=== PATIENT | female | born 1940 | race Two or more races ===

== ENCOUNTER 2017-01-05 13:15 | Inpatient (IN) | payer MEDICARE, OTHER ==
[2017-01-05 14:29] VITALS: BMI 42.0
[2017-01-05] MEDS ORDERED: oxyCODONE 5 mg Immediate Release Tab PO PRN (17:17)
[2017-01-05] MEDS ORDERED: Alum-Mag Hydrox-Simethicone Susp (30 mL) PO PRN (17:17)
[2017-01-05] MEDS ORDERED: Albuterol HFA 90 mcg/actuation (8 g) IH PRN (17:17)
--- NOTE | 2017-01-05 17:33 | CP.PCM.HP ---
History of Present Illness - History of Present Illness History of Present Illness: 76 y/o female with PMH HTN, Hypothyroidism, obesity, sleep apnea, Osteoarthritis , asthma, gout, fibromyalgia, glaucoma underwent right total knee replacement in the [facility] for special surgery. Patient now transferred to acute rehab for post op physical therapy and recovery. Patient feeling well, denies any CP, SOB, palpitations, PND, orthpopnea, She has sleep apnea and uses her CPAP machine at night.Complains of constipation and last BM was 3 days ago. Denies any abdominal pain,fever chills, nausea, vomiting, urinary sx . Pain to right knee is well controlled. Allergies; Zithromax, prozac, latex, tree, grass PMH ; HTN, Hypothyroidism, obesity, sleep apnea, Osteoarthritis, asthma, gout, fibromyalgia, glaucoma Medications; Gabapentin, Lisinopril, Synthroid,senekot, tramadol, oxycodone, flexeril Surgery ; bilateral breast adenoma removal and left lumpectomy for invasive ductal carcinoma 6 years ago, left foot bunion removal,lap band ,right TKR Family history ; Mother had VT 52 years old, Father used to drink Social history ; Lives in [place] in an elevator building, does not work, , has no children, denies smoking or drug abuse, social alcohol consumption ROS ; all other 14 point system review is negative except above PMD ; Dr. Chatterjee Surrogate decision maker: nephsami Ching [phone] Present on Admission - Present on Admission Any Indicators Present on Admission: No Review of Systems - Review of Systems All systems: reviewed and no additional remarkable complaints except Past Patient History - Infectious Disease Hx of Infectious Diseases: None - Tetanus Immunizations Tetanus Immunization: Unknown - Past Medical History & Family History Past Medical History?: Yes Pertinent Family History: mother had VT 52 years old - Past Social History Smoking Status: Never Smoked Chewing Tobacco Use: No Cigar Use: No Alcohol: Social Drugs: Denies Home Situation {Lives}: Alone Domestic Violence: Negative - CARDIAC Hx Hypotension: Yes - PULMONARY Hx Asthma: Yes Hx Sleep Apnea: Yes - NEUROLOGICAL Hx Neurological Disorder: No - HEENT Hx Glaucoma: Yes - RENAL Hx Chronic Kidney Disease: No - ENDOCRINE/METABOLIC Hx Hypothyroidism: Yes - HEMATOLOGICAL/ONCOLOGICAL Hx Blood Disorders: No - INTEGUMENTARY Hx Dermatological Problems: No - MUSCULOSKELETAL/RHEUMATOLOGICAL Hx Musculoskeletal Disorders: Yes Hx Arthritis: Yes Hx Gout: Yes Hx Herniated Disk: Yes Hx Osteoarthritis: Yes - GASTROINTESTINAL Hx Gastrointestinal Disorders: No - PSYCHIATRIC Hx Psychophysiologic Disorder: No - SURGICAL HISTORY Hx Surgeries: Yes Hx Breast Biopsy: Yes Hx Joint Replacement: Yes Other/Comment: lumpectomy - ANESTHESIA Hx Anesthesia: Yes Hx Anesthesia Reactions: No Hx Malignant Hyperthermia: No Has any member of the family had a problem w/ anesthesia?: No Meds Allergies/Adverse Reactions: Allergies Allergy/AdvReac Type Severity Reaction Status Date / Time azithromycin [From Zithromax] Allergy SHORTNESS Verified 01/05/17 13:52 OF BREATH erythromycin base Allergy SHORTNESS Verified 01/05/17 13:52 OF BREATH fluoxetine HCl [From Prozac] Allergy SHORTNESS Verified 01/05/17 13:52 OF BREATH Latex, Natural Rubber Allergy RASH Verified 01/05/17 13:52 peanut Allergy SHORTNESS Verified 01/05/17 13:52 OF BREATH plantain Allergy SHORTNESS Verified 01/05/17 13:52 OF BREATH pollen extracts Allergy SHORTNESS Verified 01/05/17 13:52 OF BREATH Physical Exam - Constitutional Appears: Well, Non-toxic, No Acute Distress, Other (obese) - Head Exam Head Exam: ATRAUMATIC, NORMAL INSPECTION, NORMOCEPHALIC - Eye Exam Eye Exam: EOMI, Normal appearance, PERRL Pupil Exam: NORMAL ACCOMODATION - ENT Exam ENT Exam: Mucous Membranes Moist, Normal Exam - Neck Exam Neck exam: Positive for: Full Rom, Normal Inspection - Respiratory Exam Respiratory Exam: Clear to Auscultation Bilateral, NORMAL BREATHING PATTERN. absent: Rales, Rhonchi, Wheezes - Cardiovascular Exam Cardiovascular Exam: REGULAR RHYTHM, RRR, +S1, +S2. absent: JVD - GI/Abdominal Exam GI & Abdominal Exam: Normal Bowel Sounds, Soft. absent: Distended, Guarding, Rebound, Tenderness - Rectal Exam Rectal Exam: Deferred - Extremities Exam Extremities exam: Positive for: normal capillary refill, pedal edema (1 = to RLE ), pedal pulses present. Negative for: calf tenderness Additional comments: right knee surgical incision with acquacell dressing in place , inatact pulses present - Back Exam Back exam: NORMAL INSPECTION - Neurological Exam Neurological exam: Alert, CN II-XII Intact, Oriented x3, Reflexes Normal - Psychiatric Exam Psychiatric exam: Normal Affect, Normal Mood - Skin Skin Exam: Dry, Normal Color, Warm Assessment & Plan - Assessment and Plan (Free Text) Assessment: 76 y/o female with PMH HTN, Hypothyroidism, obesity, sleep apnea, Osteoarthritis , asthma, gout, fibromyalgia, glaucoma underwent right total knee replacement in the [facility] for special surgery. Patient now transferred to acute rehab for post op physical therapy and recovery. 1. s/p Right TKR admit to acute rehab Physiotherapy consult with Dr. Singh Continue pain management PT/ Ot consult DVT prophylaxis with ASA 325 mg po BID as per ortho Keep Acquacell dressing in place for 10 days Continue weight bearing to RLE as tolerated , no CPM machine 2. Hypothryroidism Start Synthroid 3. Hypertension on Lisinopril 4. Morbid Obesity s/p lap band surgery will need global creative chairman consult 5. Fibromyalgia 0n Gabapentin 6. Gout ? not on any treatments at present 7.Sleep apnea May use her CPAP machine at night Pulmonary cosnult with Dr. Chatterjee 8. DVT prophylaxis on ASA
--- NOTE | 2017-01-05 19:09 | CP.PCM.CON ---
History of Present Illness - History of Present Illness History of Present Illness: Dr Singh PMR consultation on Rosemarie Myers who I have known more many years and used to treat her . She is now s/p right TKR. Excellent initial ROM and minimal pain and no strike through on the dressing. She failed conservative care. Dr Black at [facility] performed the surgery 01/03/17 Review of Systems - Constitutional Constitutional: absent: Anorexia, Chills - EENT Eyes: absent: Blind Spots, Blurred Vision Ears: absent: Decreased Hearing Nose/Mouth/Throat: absent: Nasal Congestion - Cardiovascular Cardiovascular: absent: Chest Pain - Respiratory Respiratory: absent: Dyspnea - Gastrointestinal Gastrointestinal: absent: Abdominal Pain, Constipation - Musculoskeletal Musculoskeletal: absent: Numbness - Integumentary Integumentary: Other (incision) Past Patient History - Infectious Disease Hx of Infectious Diseases: None - Tetanus Immunizations Tetanus Immunization: Unknown - Past Medical History & Family History Past Medical History?: Yes - Past Social History Smoking Status: Never Smoked Chewing Tobacco Use: No Cigar Use: No Alcohol: Social Drugs: Denies Home Situation {Lives}: Alone (elevator) Domestic Violence: Negative - CARDIAC Hx Hypotension: Yes - PULMONARY Hx Asthma: Yes Hx Sleep Apnea: Yes - NEUROLOGICAL Hx Neurological Disorder: No - HEENT Hx Glaucoma: Yes - RENAL Hx Chronic Kidney Disease: No - ENDOCRINE/METABOLIC Hx Hypothyroidism: Yes - HEMATOLOGICAL/ONCOLOGICAL Hx Blood Disorders: No - INTEGUMENTARY Hx Dermatological Problems: No - MUSCULOSKELETAL/RHEUMATOLOGICAL Hx Musculoskeletal Disorders: Yes Hx Arthritis: Yes Hx Gout: Yes Hx Herniated Disk: Yes Hx Osteoarthritis: Yes - GASTROINTESTINAL Hx Gastrointestinal Disorders: No - PSYCHIATRIC Hx Psychophysiologic Disorder: No - SURGICAL HISTORY Hx Surgeries: Yes Hx Breast Biopsy: Yes Hx Joint Replacement: Yes Other/Comment: lumpectomy - ANESTHESIA Hx Anesthesia: Yes Hx Anesthesia Reactions: No Hx Malignant Hyperthermia: No Has any member of the family had a problem w/ anesthesia?: No Meds Allergies/Adverse Reactions: Allergies Allergy/AdvReac Type Severity Reaction Status Date / Time azithromycin [From Zithromax] Allergy RASH Verified 01/05/17 17:58 erythromycin base Allergy RASH Verified 01/05/17 17:58 fluoxetine HCl [From Prozac] Allergy RASH Verified 01/05/17 17:58 Latex, Natural Rubber Allergy REDNESS Verified 01/05/17 17:58 peanut Allergy RASH Verified 01/05/17 17:58 plantain Allergy RASH Verified 01/05/17 17:58 pollen extracts Allergy RASH Verified 01/05/17 17:58 - Medications Medications: Current Medications Acetaminophen (Tylenol 325mg Tab) 650 mg PO Q6 PRN PRN Reason: Fever >100.4 F Acetaminophen (Tylenol 325mg Tab) 325 mg PO Q6 PRN PRN Reason: Pain, Mild (1-3) Al Hydrox/Mg Hydrox/Simethicone (Maalox Plus 30 Ml) 30 ml PO Q4 PRN PRN Reason: Heartburn Albuterol Sulfate (Proair Hfa) 1 puff IH Q6H PRN PRN Reason: Shortness of Breath Aspirin (Ecotrin) 325 mg PO BID [facility] Bisacodyl (Dulcolax) 10 mg RC DAILY PRN PRN Reason: Constipation Celecoxib (Celebrex) 200 mg PO DAILY [facility] Docusate Sodium (Colace) 100 mg PO BID [facility] Gabapentin (Neurontin) 300 mg PO BID PRN PRN Reason: Muscle spasm Home Med (Cyclosporine [Restasis]) 1 drop OP BID [facility] Levothyroxine Sodium (Synthroid) 112 mcg PO DAILY@0630 [facility] Lisinopril (Zestril) 10 mg PO DAILY [facility] Ondansetron HCl (Zofran Inj) 4 mg IVP Q6 PRN PRN Reason: Nausea/Vomiting Oxycodone HCl (Oxycodone Immediate Release Tab) 5 mg PO Q6 PRN PRN Reason: Pain, severe (8-10) Oxycodone HCl (Oxycontin Extended Release Tab) 10 mg PO DAILY [facility] Stop: 01/09/17 09:01 Pantoprazole Sodium (Protonix Ec Tab) 40 mg PO DAILY [facility] Sennosides (Senokot Tab) 17.2 mg PO DAILY [facility] Tramadol HCl (Ultram) 50 mg PO Q6 PRN PRN Reason: Pain, moderate (4-7) Physical Exam - Constitutional Appears: Non-toxic, No Acute Distress - Eye Exam Eye Exam: EOMI - ENT Exam ENT Exam: Mucous Membranes Moist - Respiratory Exam Respiratory Exam: NORMAL BREATHING PATTERN - Cardiovascular Exam Cardiovascular Exam: REGULAR RHYTHM - GI/Abdominal Exam GI & Abdominal Exam: absent: Distended - Extremities Exam Extremities exam: Negative for: calf tenderness - Neurological Exam Neurological exam: Alert, CN II-XII Intact, Oriented x3 - Psychiatric Exam Psychiatric exam: Normal Affect, Normal Mood Results - Vital Signs Recent Vital Signs: Last Vital Signs Temp 96.6 F L 01/05/17 17:15 Pulse 74 01/05/17 17:15 Resp 20 01/05/17 17:15 BP 120/67 01/05/17 17:15 Pulse Ox 94 L 01/05/17 17:15 Assessment & Plan - Assessment and Plan (Free Text) Assessment: Rosemarie is s/p right TKR, excellent early status PT/OT to continue to help increase functional independence Team conference for d/c planning Pain: controlled Vascular: no evidence of DVT GI: No evidence of constipation or diarrhea At least 90 degrees right knee ROM Patient is an excellent acute rehabilitation candidate and will have focused pain management, wound care, PT, OT and recreational therapy to help facilitate a safe and appropriate d/c plan Impairment code 08.61
--- NOTE | 2017-01-05 19:12 | CP.PCM.PN ---
Subjective - Date & Time of Evaluation Date of Evaluation: 01/05/17 Time of Evaluation: 19:11 - Subjective Subjective: right TKR Objective - Vital Signs/Intake and Output Vital Signs (last 24 hours): Temp Pulse Resp BP Pulse Ox 96.6 F L 74 20 120/67 94 L 01/05/17 17:15 01/05/17 17:15 01/05/17 17:15 01/05/17 17:15 01/05/17 17:15 - Medications Medications: Current Medications Acetaminophen (Tylenol 325mg Tab) 650 mg PO Q6 PRN PRN Reason: Fever >100.4 F Acetaminophen (Tylenol 325mg Tab) 325 mg PO Q6 PRN PRN Reason: Pain, Mild (1-3) Al Hydrox/Mg Hydrox/Simethicone (Maalox Plus 30 Ml) 30 ml PO Q4 PRN PRN Reason: Heartburn Albuterol Sulfate (Proair Hfa) 1 puff IH Q6H PRN PRN Reason: Shortness of Breath Aspirin (Ecotrin) 325 mg PO BID [facility] Bisacodyl (Dulcolax) 10 mg RC DAILY PRN PRN Reason: Constipation Celecoxib (Celebrex) 200 mg PO DAILY [facility] Docusate Sodium (Colace) 100 mg PO BID [facility] Gabapentin (Neurontin) 300 mg PO BID PRN PRN Reason: Muscle spasm Home Med (Cyclosporine [Restasis]) 1 drop OP BID [facility] Levothyroxine Sodium (Synthroid) 112 mcg PO DAILY@0630 [facility] Lisinopril (Zestril) 10 mg PO DAILY [facility] Ondansetron HCl (Zofran Inj) 4 mg IVP Q6 PRN PRN Reason: Nausea/Vomiting Oxycodone HCl (Oxycodone Immediate Release Tab) 5 mg PO Q6 PRN PRN Reason: Pain, severe (8-10) Oxycodone HCl (Oxycontin Extended Release Tab) 10 mg PO DAILY [facility] Stop: 01/09/17 09:01 Pantoprazole Sodium (Protonix Ec Tab) 40 mg PO DAILY [facility] Sennosides (Senokot Tab) 17.2 mg PO DAILY [facility] Tramadol HCl (Ultram) 50 mg PO Q6 PRN PRN Reason: Pain, moderate (4-7) Physiatry Overall Plan of Care - Overall Plan of Care Estimated Length of Stay in Weeks: 1 Rehab Impairment: Mobility, Gait, Balance Etiologic Diagnosis: Hip/Knee Surgery Rehab/Medical Prognosis: Good - Anticipated Interventions Physical Therapy:: Yes Occupational Therapy:: Yes Speech Therapy:: No Recreational Therapy:: Yes - Therapy Goals Bed Mobility: Supervision Ambulation: Supervision Functional Positional Changes:: Supervision - Discharge Plan Discharge Destination: Home
[2017-01-05] MEDS ORDERED: ALBUTEROL IH PRN (19:15)
[2017-01-06] MEDS: Levothyroxine 112 MCG TAB PO SCH (06:23)
[2017-01-06] MEDS ORDERED: Enoxaparin 40 mg Syringe SC SCH (09:00)
[2017-01-06] MEDS ORDERED: Pantoprazole 40 mg EC Tab PO SCH (09:00)
[2017-01-06] MEDS ORDERED: Patient's Own Med (Cyclosporine [Restasis] 1 DROP) OP SCH (09:00)
[2017-01-06] MEDS: Pantoprazole 40 mg EC Tab PO SCH (09:10)
[2017-01-06] MEDS: Aspirin 325 mg EC Tablets PO SCH ×2 (09:10→17:14)
[2017-01-06] MEDS: oxyCODONE 10 mg ER Tab (oxyCONTIN) PO SCH (09:13)
--- NOTE | 2017-01-06 11:10 | CP.PCM.CON ---
History of Present Illness - History of Present Illness History of Present Illness: This 76 year old female was discharged to acute rehab from [facility] in [facility] after having TKR on the right side. She had been doing well prior to the surgery and has been followed as an outpatient. 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 She does take all her medications as prescribed at home and has lost a substantial amount of weight after having lap band surgery performed. Her initial blood going into the surgical procedure was to have both knees done, the right one first followed in 3 months by the left. Because of some ongoing issues with her lap band it has been deflated by her surgeon recently. Past Patient History - Infectious Disease Hx of Infectious Diseases: None - Tetanus Immunizations Tetanus Immunization: Unknown - Past Medical History & Family History Past Medical History?: Yes Pertinent Family History: CAD, Stroke, Renal failure, cerebral aneurysm - Past Social History Smoking Status: Former Smoker (discontinued 2000) Chewing Tobacco Use: No Cigar Use: No Alcohol: Social Drugs: Denies Home Situation {Lives}: Alone (elevator) Domestic Violence: Negative - CARDIAC Hx Hypertension: Yes - PULMONARY Hx Asthma: Yes Hx Pneumonia: Yes Hx Sleep Apnea: Yes - NEUROLOGICAL Hx Vertigo: Yes - HEENT Hx Glaucoma: Yes - RENAL Hx Chronic Kidney Disease: No - ENDOCRINE/METABOLIC Hx Hypothyroidism: Yes (Subsequent Mechelle's thyroiditis) - HEMATOLOGICAL/ONCOLOGICAL Hx Blood Disorders: No Hx Human Immunodeficiency Virus (HIV): No - INTEGUMENTARY Hx Dermatological Problems: No - MUSCULOSKELETAL/RHEUMATOLOGICAL Hx Degenerative Joint Disease: Yes Hx Gout: Yes Hx Herniated Disk: Yes Hx Osteoarthritis: Yes Other/Comment: fibromyalgia - GASTROINTESTINAL Hx Gastrointestinal Disorders: Yes Hx Gastroesophageal Reflux: Yes - GENITOURINARY/GYNECOLOGICAL Hx Genitourinary Disorders: No - PSYCHIATRIC Hx Psychophysiologic Disorder: No - SURGICAL HISTORY Hx Breast Biopsy: Yes Hx Joint Replacement: Yes Other/Comment: Left breast lumpectomy. Lap band surgery - ANESTHESIA Hx Anesthesia: Yes Hx Anesthesia Reactions: No Hx Malignant Hyperthermia: No Has any member of the family had a problem w/ anesthesia?: No Meds Allergies/Adverse Reactions: Allergies Allergy/AdvReac Type Severity Reaction Status Date / Time azithromycin [From Zithromax] Allergy RASH Verified 01/05/17 17:58 erythromycin base Allergy RASH Verified 01/05/17 17:58 fluoxetine HCl [From Prozac] Allergy RASH Verified 01/05/17 17:58 Latex, Natural Rubber Allergy REDNESS Verified 01/05/17 17:58 peanut Allergy RASH Verified 01/05/17 17:58 plantain Allergy RASH Verified 01/05/17 17:58 pollen extracts Allergy RASH Verified 01/05/17 17:58 - Medications Medications: Current Medications Acetaminophen (Tylenol 325mg Tab) 650 mg PO Q6 PRN PRN Reason: Fever >100.4 F Acetaminophen (Tylenol 325mg Tab) 325 mg PO Q6 PRN PRN Reason: Pain, Mild (1-3) Al Hydrox/Mg Hydrox/Simethicone (Maalox Plus 30 Ml) 30 ml PO Q4 PRN PRN Reason: Heartburn Albuterol Sulfate (Proair Hfa) 1 puff IH Q6H PRN PRN Reason: Shortness of Breath Aspirin (Ecotrin) 325 mg PO BID [facility] Last Admin: 01/06/17 09:10 Dose: 325 mg Bisacodyl (Dulcolax) 10 mg RC DAILY PRN PRN Reason: Constipation Celecoxib (Celebrex) 200 mg PO DAILY [facility] Last Admin: 01/06/17 09:09 Dose: 200 mg Docusate Sodium (Colace) 100 mg PO BID [facility] Last Admin: 01/06/17 09:09 Dose: 100 mg Gabapentin (Neurontin) 300 mg PO BID PRN PRN Reason: Muscle spasm Home Med (Cyclosporine [Restasis]) 1 drop OP BID [facility] Levothyroxine Sodium (Synthroid) 112 mcg PO DAILY@0630 [facility] Last Admin: 01/06/17 06:23 Dose: 112 mcg Lisinopril (Zestril) 10 mg PO DAILY [facility] Last Admin: 01/06/17 09:11 Dose: 10 mg Ondansetron HCl (Zofran Tab) 4 mg PO Q4 PRN PRN Reason: Nausea/Vomiting Oxycodone HCl (Oxycodone Immediate Release Tab) 5 mg PO Q6 PRN PRN Reason: Pain, severe (8-10) Oxycodone HCl (Oxycontin Extended Release Tab) 10 mg PO DAILY [facility] Stop: 01/09/17 09:01 Last Admin: 01/06/17 09:13 Dose: 10 mg Pantoprazole Sodium (Protonix Ec Tab) 40 mg PO DAILY [facility] Last Admin: 01/06/17 09:10 Dose: 40 mg Sennosides (Senokot Tab) 17.2 mg PO DAILY [facility] Last Admin: 01/06/17 09:11 Dose: 17.2 mg Tramadol HCl (Ultram) 50 mg PO Q6 PRN PRN Reason: Pain, moderate (4-7) Last Admin: 01/06/17 03:26 Dose: 50 mg Physical Exam - Additional Findings Additional findings: Well-nourished, well-developed, lying in bed in no acute distress. She had recently been medicated for pain in the surgical site. Her speech is fluent and her memory is intact. The pharynx is pink and mucous membranes are moist. No exudate. Nares are patent bilaterally. No bleeding. Conjunctivae are pink and there is no scleral icterus. The neck is supple and trachea is midline. No neck vein distention or carotid bruit. No palpable thyromegaly. There is no chest dullness to percussion. Equal expansion. Breath sounds are well heard bilaterally. No rales or wheezes. No bronchial breath sounds or egophony. No rhonchi or rub. Heart sounds are well heard the rhythm is regular. Soft systolic ejection murmur is heard at the base. Abdomen is soft and nontender with normal bowel sounds. No palpable HSM. A large surgical resting extends from the mid thigh to the infra patellar region of the right leg. Some ecchymosis is noted in the medial aspect of the suprapatellar region. Some mild postoperative swelling is present. There is mild dependent edema in the left ankle. No cyanosis. Both lower extremities are warm to touch. Results - Vital Signs Recent Vital Signs: Last Vital Signs Temp 97.7 F 01/06/17 08:12 Pulse 88 01/06/17 09:11 Resp 22 01/06/17 08:12 BP 118/67 01/06/17 09:11 Pulse Ox 96 01/06/17 08:12 - Labs Result Diagrams: 01/06/17 11:27 01/06/17 11:27 Assessment & Plan (1) KALINA (obstructive sleep apnea) Status: Chronic Priority: High (2) Fibromyalgia Status: Chronic Priority: Medium (3) Hyperlipidemia Status: Chronic Priority: Medium (4) Hypothyroid Status: Chronic Priority: Medium (5) Status post right knee replacement Status: Acute Priority: High (6) History of bariatric surgery Status: Inactive - Assessment and Plan (Free Text) Plan: Patient's clinical condition appears to be stable. She will continue to use her nasal CPAP which he has brought from her home. Follow-up with pain management as instructed by Dr. Singh. Continue all maintenance medications from home unchanged. - Date & Time Date: 01/06/17 Time: 11:11
[2017-01-06 11:44] LABS: HEMATOCRIT 33.5 % (34.0-47.0); MEAN CELL VOLUME 90.8 fl (81.0-99.0); MEAN CORPUSCULAR HGB CONC 34.2 g/dL (33.0-37.0); RED CELL DISTRIBUTION WIDTH 13.8 % (11.5-14.5); WHITE BLOOD COUNT 10.7 K/uL (4.8-10.8)
[2017-01-06 11:57] LABS: BLOOD UREA NITROGEN 24 mg/dl (7-17); CALCIUM 10.1 mg/dL (8.4-10.2); CARBON DIOXIDE 30 mmol/L (22-30); CHLORIDE 102 mmol/L (98-107); GFR AFRICAN-AMERICAN > 60; GLUCOSE,RANDOM 109 mg/dL (65-105); POTASSIUM 4.2 MMOL/L (3.6-5.0); SODIUM 138 mmol/l (132-148)
[2017-01-06 11:59] LABS: PARTIAL THROMBOPLASTIN TIME 23.3 SECONDS (23.3-32.5)
--- NOTE | 2017-01-06 13:02 | CP.PCM.PN ---
Subjective - Date & Time of Evaluation Date of Evaluation: 01/06/17 Time of Evaluation: 11:00 - Subjective Subjective: Pt seen and examined. Able to walk with assistance. Pain on right knew tolerable. Objective - Vital Signs/Intake and Output Vital Signs (last 24 hours): Temp Pulse Resp BP Pulse Ox 97.7 F 88 22 118/67 96 01/06/17 08:12 01/06/17 09:11 01/06/17 08:12 01/06/17 09:11 01/06/17 08:12 - Medications Medications: Current Medications Acetaminophen (Tylenol 325mg Tab) 650 mg PO Q6 PRN PRN Reason: Fever >100.4 F Acetaminophen (Tylenol 325mg Tab) 325 mg PO Q6 PRN PRN Reason: Pain, Mild (1-3) Al Hydrox/Mg Hydrox/Simethicone (Maalox Plus 30 Ml) 30 ml PO Q4 PRN PRN Reason: Heartburn Albuterol Sulfate (Proair Hfa) 1 puff IH Q6H PRN PRN Reason: Shortness of Breath Aspirin (Ecotrin) 325 mg PO BID [facility] Last Admin: 01/06/17 09:10 Dose: 325 mg Bisacodyl (Dulcolax) 10 mg RC DAILY PRN PRN Reason: Constipation Celecoxib (Celebrex) 200 mg PO DAILY [facility] Last Admin: 01/06/17 09:09 Dose: 200 mg Docusate Sodium (Colace) 100 mg PO BID [facility] Last Admin: 01/06/17 09:09 Dose: 100 mg Gabapentin (Neurontin) 300 mg PO BID PRN PRN Reason: Muscle spasm Home Med (Cyclosporine [Restasis]) 1 drop OP BID [facility] Levothyroxine Sodium (Synthroid) 112 mcg PO DAILY@0630 [facility] Last Admin: 01/06/17 06:23 Dose: 112 mcg Lisinopril (Zestril) 10 mg PO DAILY [facility] Last Admin: 01/06/17 09:11 Dose: 10 mg Ondansetron HCl (Zofran Tab) 4 mg PO Q4 PRN PRN Reason: Nausea/Vomiting Oxycodone HCl (Oxycodone Immediate Release Tab) 5 mg PO Q6 PRN PRN Reason: Pain, severe (8-10) Oxycodone HCl (Oxycontin Extended Release Tab) 10 mg PO DAILY [facility] Stop: 01/09/17 09:01 Last Admin: 01/06/17 09:13 Dose: 10 mg Pantoprazole Sodium (Protonix Ec Tab) 40 mg PO DAILY [facility] Last Admin: 01/06/17 09:10 Dose: 40 mg Sennosides (Senokot Tab) 17.2 mg PO DAILY [facility] Last Admin: 01/06/17 09:11 Dose: 17.2 mg Tramadol HCl (Ultram) 50 mg PO Q6 PRN PRN Reason: Pain, moderate (4-7) Last Admin: 01/06/17 03:26 Dose: 50 mg - Labs Labs: 01/06/17 11:27 01/06/17 11:27 PT 10.4 SECONDS (9.6-11.2) 01/06/17 11:27 INR 1.00 (0.92-1.08) 01/06/17 11:27 APTT 23.3 SECONDS (23.3-32.5) 01/06/17 11:27 - Constitutional Appears: No Acute Distress - Head Exam Head Exam: ATRAUMATIC - Eye Exam Eye Exam: Normal appearance - ENT Exam ENT Exam: Mucous Membranes Moist - Neck Exam Neck Exam: absent: Meningismus - Respiratory Exam Respiratory Exam: absent: Rhonchi, Wheezes, Respiratory Distress - Cardiovascular Exam Cardiovascular Exam: REGULAR RHYTHM, +S1, +S2 - GI/Abdominal Exam GI & Abdominal Exam: Soft. absent: Tenderness - Rectal Exam Rectal Exam: Deferred - Extremities Exam Extremities Exam: Joint Swelling (right knee slightly swollen and mildly tender) - Back Exam Back Exam: absent: tenderness - Neurological Exam Neurological Exam: Alert, Oriented x3 - Psychiatric Exam Psychiatric exam: Normal Affect - Skin Skin Exam: Dry, Intact Assessment and Plan (1) Status post right knee replacement Status: Acute (2) Hypothyroid Status: Chronic (3) HTN (hypertension) Status: Chronic (4) Fibromyalgia Status: Chronic (5) KALINA (obstructive sleep apnea) Status: Chronic - Assessment and Plan (Free Text) Assessment: 76 y/o female with PMH HTN, Hypothyroidism, obesity, sleep apnea, Osteoarthritis , asthma, fibromyalgia and glaucoma had right total knee replacement on 01/03/17 in [facility] for special surgery. She was transferred here for PT. 1. s/p Right TKR continue PT/OT pain management DVT prophylaxis with ASA 325 mg po BID as per ortho 2. Hypothryroidism continue Synthroid 3. Hypertension BP stable continue Lisinopril 4. Morbid Obesity s/p lap band surgery will need plastic parts fabricator trimmer consult 5. Fibromyalgia continue Gabapentin 6. Sleep apnea use CPAP at night Dr. Chatterjee on pulmonary consult 8. DVT prophylaxis on ASA BID
[2017-01-07] MEDS: Levothyroxine 112 MCG TAB PO SCH (06:24)
[2017-01-07] MEDS: Pantoprazole 40 mg EC Tab PO SCH (08:29)
[2017-01-07] MEDS: oxyCODONE 10 mg ER Tab (oxyCONTIN) PO SCH (08:30)
[2017-01-07] MEDS: Aspirin 325 mg EC Tablets PO SCH ×2 (08:32→17:55)
[2017-01-07] MEDS ORDERED: Artificial Tears Opht Soln OU PRN (11:12)
[2017-01-07] MEDS ORDERED: PRO AIR HFA 8.5GM INHALER(FOR OR USE ONLY) IH PRN (13:20)
--- NOTE | 2017-01-07 13:29 | CP.PCM.PN ---
Subjective - Date & Time of Evaluation Date of Evaluation: 01/07/17 Time of Evaluation: 13:26 - Subjective Subjective: Doing well with physical therapy. Had restless night because of knee pain. Became ill after oxycodone, will discontinue. Continue tramadol 50 MG with acetaminophen 650MG Q6H PRN. Large area of ecchymosis has developed above the surgical site, soft and non- tender. Labs and vital signs are stable. No respiratory issues. Objective - Vital Signs/Intake and Output Vital Signs (last 24 hours): Temp Pulse Resp BP Pulse Ox 97.9 F 89 21 140/80 95 01/07/17 07:28 01/07/17 08:31 01/07/17 07:28 01/07/17 08:31 01/07/17 07:28 - Medications Medications: Current Medications Acetaminophen (Tylenol 325mg Tab) 325 mg PO Q6 PRN PRN Reason: Pain, moderate (4-7) Al Hydrox/Mg Hydrox/Simethicone (Maalox Plus 30 Ml) 30 ml PO Q4 PRN PRN Reason: Heartburn Albuterol Sulfate (Proair Hfa) 2 puff IH Q4H PRN PRN Reason: Shortness of Breath Artificial Tears (Artificial Tears) 2 drop OU Q6 PRN PRN Reason: Dry eyes Aspirin (Ecotrin) 325 mg PO BID [facility] Last Admin: 01/07/17 08:32 Dose: 325 mg Bisacodyl (Dulcolax) 10 mg RC DAILY PRN PRN Reason: Constipation Celecoxib (Celebrex) 200 mg PO DAILY [facility] Last Admin: 01/07/17 08:32 Dose: 200 mg Docusate Sodium (Colace) 100 mg PO BID [facility] Last Admin: 01/07/17 08:32 Dose: 100 mg Ferrous Gluconate (Fergon) 324 mg PO DAILY [facility] Gabapentin (Neurontin) 300 mg PO BID PRN PRN Reason: Muscle spasm Last Admin: 01/07/17 06:26 Dose: 300 mg Levothyroxine Sodium (Synthroid) 112 mcg PO DAILY@0630 [facility] Last Admin: 01/07/17 06:24 Dose: 112 mcg Lisinopril (Zestril) 10 mg PO DAILY [facility] Last Admin: 01/07/17 08:31 Dose: 10 mg Ondansetron HCl (Zofran Tab) 4 mg PO Q4 PRN PRN Reason: Nausea/Vomiting Pantoprazole Sodium (Protonix Ec Tab) 40 mg PO DAILY [facility] Last Admin: 01/07/17 08:29 Dose: 40 mg Sennosides (Senokot Tab) 17.2 mg PO DAILY [facility] Last Admin: 01/07/17 08:31 Dose: Not Given Tramadol HCl (Ultram) 50 mg PO Q6 PRN PRN Reason: Pain, moderate (4-7) Last Admin: 01/07/17 05:23 Dose: 50 mg - Labs Labs: 01/06/17 11:27 01/06/17 11:27 PT 10.4 SECONDS (9.6-11.2) 01/06/17 11:27 INR 1.00 (0.92-1.08) 01/06/17 11:27 APTT 23.3 SECONDS (23.3-32.5) 01/06/17 11:27 Assessment and Plan (1) KALINA (obstructive sleep apnea) Status: Chronic (2) Fibromyalgia Status: Chronic (3) Hyperlipidemia Status: Chronic (4) Hypothyroid Status: Chronic (5) Status post right knee replacement Status: Acute (6) History of bariatric surgery Status: Inactive
[2017-01-08] MEDS: Levothyroxine 112 MCG TAB PO SCH (06:44)
[2017-01-08] MEDS: Pantoprazole 40 mg EC Tab PO SCH (08:40)
[2017-01-08] MEDS: Aspirin 325 mg EC Tablets PO SCH ×2 (08:43→16:47)
[2017-01-08 20:41] VITALS: RESP 20
[2017-01-09] MEDS: Levothyroxine 112 MCG TAB PO SCH (06:19)
[2017-01-09] MEDS: Pantoprazole 40 mg EC Tab PO SCH (08:41)
[2017-01-09] MEDS: Aspirin 325 mg EC Tablets PO SCH ×2 (08:45→17:07)
--- NOTE | 2017-01-09 09:33 | CP.PCM.PN ---
Subjective - Date & Time of Evaluation Date of Evaluation: 01/09/17 Time of Evaluation: 09:31 - Subjective Subjective: Interim events and EMR reviewed. Discussed with her nurse this morning. Has been having breakthrough pain likely related to her fibromyalgia. Have changed gabapentin from 300MG BID PRN to 300MG TID [facility] with 300MG still available BID PRN. Objective - Vital Signs/Intake and Output Vital Signs (last 24 hours): Temp Pulse Resp BP Pulse Ox 97.7 F 82 20 120/78 96 01/08/17 20:40 01/08/17 20:40 01/08/17 20:40 01/09/17 08:41 01/08/17 20:40 - Medications Medications: Current Medications Acetaminophen (Tylenol 325mg Tab) 325 mg PO Q6 PRN PRN Reason: Pain, moderate (4-7) Last Admin: 01/08/17 22:14 Dose: 325 mg Al Hydrox/Mg Hydrox/Simethicone (Maalox Plus 30 Ml) 30 ml PO Q4 PRN PRN Reason: Heartburn Albuterol Sulfate (Proair Hfa) 2 puff IH Q4H PRN PRN Reason: Shortness of Breath Artificial Tears (Artificial Tears) 2 drop OU Q6 PRN PRN Reason: Dry eyes Aspirin (Ecotrin) 325 mg PO BID [facility] Last Admin: 01/09/17 08:45 Dose: 325 mg Bisacodyl (Dulcolax) 10 mg RC DAILY PRN PRN Reason: Constipation Celecoxib (Celebrex) 200 mg PO DAILY [facility] Last Admin: 01/09/17 08:40 Dose: 200 mg Docusate Sodium (Colace) 100 mg PO BID [facility] Last Admin: 01/09/17 08:39 Dose: 100 mg Ferrous Gluconate (Fergon) 324 mg PO DAILY [facility] Last Admin: 01/09/17 08:43 Dose: 324 mg Gabapentin (Neurontin) 300 mg PO BID PRN PRN Reason: Muscle spasm Last Admin: 01/07/17 06:26 Dose: 300 mg Gabapentin (Neurontin) 300 mg PO TID [facility] Levothyroxine Sodium (Synthroid) 112 mcg PO DAILY@0630 [facility] Last Admin: 01/09/17 06:19 Dose: 112 mcg Lisinopril (Zestril) 10 mg PO DAILY [facility] Last Admin: 01/09/17 08:41 Dose: 10 mg Ondansetron HCl (Zofran Tab) 4 mg PO Q4 PRN PRN Reason: Nausea/Vomiting Pantoprazole Sodium (Protonix Ec Tab) 40 mg PO DAILY [facility] Last Admin: 01/09/17 08:41 Dose: 40 mg Sennosides (Senokot Tab) 17.2 mg PO DAILY [facility] Last Admin: 01/09/17 08:46 Dose: 17.2 mg Tramadol HCl (Ultram) 50 mg PO Q6 PRN PRN Reason: Pain, severe (8-10) Last Admin: 01/09/17 08:45 Dose: 50 mg - Labs Labs: 01/06/17 11:27 01/06/17 11:27 PT 10.4 SECONDS (9.6-11.2) 01/06/17 11:27 INR 1.00 (0.92-1.08) 01/06/17 11:27 APTT 23.3 SECONDS (23.3-32.5) 01/06/17 11:27 Assessment and Plan (1) KALINA (obstructive sleep apnea) Status: Chronic (2) Fibromyalgia Status: Chronic (3) Hyperlipidemia Status: Chronic (4) Hypothyroid Status: Chronic (5) Status post right knee replacement Status: Acute (6) History of bariatric surgery Status: Inactive
--- NOTE | 2017-01-09 12:41 | CP.PCM.PN ---
Subjective - Date & Time of Evaluation Date of Evaluation: 01/09/17 Time of Evaluation: 12:25 - Subjective Subjective: Hospitalist Progress Note (Patient was seen and examined at 12:25 PM 01/09/17) 76 y/o female (PMH HTN, Hypothyroidism, Obesity, Sleep Apnea, Osteoarthritis, Asthma, Gout, Fibromyalgia, Glaucoma) underwent right total knee replacement at the [facility] for special surgery. Patient was transferred to acute rehab at [facility] on 01/05/17 for post op physical therapy and recovery. ROS: Pain in the legs Dizziness with Percocet use in the past but not now NO chest pain, NO palpitations, NO SOB/Cough/Wheezing, NO dysphagia/odynophagia , NO abdominal pain, NO n/v/d/c, NO black/bloody stools, NO lightheadedness/ dizziness, NO headache, NO new changes in vision/eye pain/loss of vision, NO new changes in hearing/ear pain/tinnitus, NO edema, NO paresthesias Exam: General: AAOx3, NAD HEENT: NCA, EOMI, PERRLA, NO cervical/supraclavicular/submandibular lymphadenopathy, NO pharyngeal erythema/exudate, Oral Mucosa and Nasal Turbinates are moist Cardiology: Holosystolic Murmur Right Intercostal Space (states she has history of this but no echocardiogram in the past 2 years and she was advised today to make sure that upon discharge and follow up with her PMD, that she have this done) Respiratory: CTA B/L, NO R/R/W GI: BSx4, Soft, NT, Central Obesity, NO HSM, NO guarding/rebound tenderness Ext: Pulses are strong and equal, Capillary Refill is 2 seconds, NO peripheral edema, Bruising in the Right upper and lower posterior Leg (this has been present since admission as per Nurse Phipps and there was no hardness palpated). Neurology: CN II through XII are grossly intact Assessment and Plan: 1). S/P Right TKR Physiotherapist Dr. Singh ASA 325 mg PO 2x/day Celebrex 200 mg PO 1x/day Ultram 50 mg PO Q6H PRN Severe Pain 2). Hypothyroidism Synthroid 112 mcg PO 1x/day 3). HTN Zestril 10 mg PO 1x/day Controlled 4). Fibromyalgia Gabapentin 300 mg PO TID Gabapentin 300 mg PO BID PRN 5). Morbid Obesity Hx Lap Band 6). Hx Gout 7). Hx Sleep Apnea CPAP @ night PMD Dr. Chatterjee following 8). Hx Asthma Pro Air 2 puff INH Q4H PRN SOB 9). Prophylactic Measures Senokot 17.2 mg PO 1x/day Colace 100 mg PO 2x/day Dulcolax 10 mg RC PRN Constipation Maalox 30 mL PO Q4H PRN Heartburn Artificial Tears 2 drops both eyes Q6H PRN Dry Eyes Protonix 40 mg PO 1x/day Zofran 4 mg PO Q4H PRN N/V Ferrous Gluconate 324 mg PO 1x/day Objective - Vital Signs/Intake and Output Vital Signs (last 24 hours): Temp Pulse Resp BP Pulse Ox 97.7 F 82 20 120/78 96 01/08/17 20:40 01/08/17 20:40 01/08/17 20:40 01/09/17 08:41 01/08/17 20:40 - Medications Medications: Current Medications Acetaminophen (Tylenol 325mg Tab) 325 mg PO Q6 PRN PRN Reason: Pain, moderate (4-7) Last Admin: 01/08/17 22:14 Dose: 325 mg Al Hydrox/Mg Hydrox/Simethicone (Maalox Plus 30 Ml) 30 ml PO Q4 PRN PRN Reason: Heartburn Albuterol Sulfate (Proair Hfa) 2 puff IH Q4H PRN PRN Reason: Shortness of Breath Artificial Tears (Artificial Tears) 2 drop OU Q6 PRN PRN Reason: Dry eyes Aspirin (Ecotrin) 325 mg PO BID [facility] Last Admin: 01/09/17 08:45 Dose: 325 mg Bisacodyl (Dulcolax) 10 mg RC DAILY PRN PRN Reason: Constipation Celecoxib (Celebrex) 200 mg PO DAILY [facility] Last Admin: 01/09/17 08:40 Dose: 200 mg Docusate Sodium (Colace) 100 mg PO BID [facility] Last Admin: 01/09/17 08:39 Dose: 100 mg Ferrous Gluconate (Fergon) 324 mg PO DAILY [facility] Last Admin: 01/09/17 08:43 Dose: 324 mg Gabapentin (Neurontin) 300 mg PO BID PRN PRN Reason: Muscle spasm Last Admin: 01/07/17 06:26 Dose: 300 mg Gabapentin (Neurontin) 300 mg PO TID [facility] Levothyroxine Sodium (Synthroid) 112 mcg PO DAILY@0630 [facility] Last Admin: 01/09/17 06:19 Dose: 112 mcg Lisinopril (Zestril) 10 mg PO DAILY [facility] Last Admin: 01/09/17 08:41 Dose: 10 mg Ondansetron HCl (Zofran Tab) 4 mg PO Q4 PRN PRN Reason: Nausea/Vomiting Pantoprazole Sodium (Protonix Ec Tab) 40 mg PO DAILY [facility] Last Admin: 01/09/17 08:41 Dose: 40 mg Sennosides (Senokot Tab) 17.2 mg PO DAILY [facility] Last Admin: 01/09/17 08:46 Dose: 17.2 mg Tramadol HCl (Ultram) 50 mg PO Q6 PRN PRN Reason: Pain, severe (8-10) Last Admin: 01/09/17 08:45 Dose: 50 mg - Labs Labs: 01/06/17 11:27 01/06/17 11:27 PT 10.4 SECONDS (9.6-11.2) 01/06/17 11:27 INR 1.00 (0.92-1.08) 01/06/17 11:27 APTT 23.3 SECONDS (23.3-32.5) 01/06/17 11:27
[2017-01-10] MEDS: Levothyroxine 112 MCG TAB PO SCH (06:33)
[2017-01-10] MEDS: Aspirin 325 mg EC Tablets PO SCH ×2 (08:43→16:50)
[2017-01-10] MEDS: Pantoprazole 40 mg EC Tab PO SCH (08:45)
--- NOTE | 2017-01-10 13:12 | PSY.TMCNF ---
Nursing - Vital Signs Vital Signs (Last 8 hours): Vital Signs 01/10/17 01/10/17 08:22 08:44 Temperature 98.0 F Pulse Rate 85 81 Respiratory 20 Rate Blood Pressure 121/73 121/73 O2 Sat by Pulse 96 Oximetry Pain: 1 - Medications/Other Issues Comment: Pt at moderate nutritional risk. goal: 1. Pt to consume 75-100% of meals. Follow-up due on 01/13/2017 - Skin Incision Site: right knee Dressing Status: Clean, Dry, Intact Incision Line Treatment: Covered with Aquacell dressing to be left inplace until 01/13/2017 - Bladder Management Bladder Pattern: Normal Voiding Method: Bedpan - Bowel Management Bowel Pattern: Constipated - Goals/Time Frame Comments: Pt was seen awake and alert sitting in her wheelchair in her room. Pt agreeable to visit. Pt was able to identify her leisure interests such as reading, going out with friends, taking walks nearby, attending senior center programs at times, and cleaning around the house. Pt stated that she will participate in leisure tasks if interested. Pt's mood was stable-positive during visit. Pt stated that staff can call her "Maia." Physical Therapy - Bed Mobility Bed Mobility: Supervision, Verbal Cues - Transfers Wheelchair to Mat: Supervision Sit to Stand: Supervision Comment: RW - Ambulation Level of Assistance: Supervision, Verbal Cues Distance (ft.): 250 Assistive Devices: Rolling Walker Comment: 250 feet, level surface, S, RW. -VCs for reduced pelvic motion and integration of RLE flexion into gait - Stair Negotiation Stairs: Level of Assistance: Supervision, Verbal Cues Number of Stairs: 6 Stairs: Assistive Devices: Right Handrail Comment: 6 6inch steps R rail, LUE with SPC, step to pattern, CS - Standing Balance Static Stand: Modified Chaves with assistive device Dynamic Stand: Supervision - Pain Pain (assessed during therapy session): 7 Management Techniques: Ice, Position Change, Elevation, Distraction, Exercise, Inactivity Comment: R knee - Insight/Carryover Insight/Carryover: Good - Patient/Family Education Comment: HEP, importance of ROM, importance of OOB and using bed to sleep and not to rest during day, safety, balance, use of DME, mobility, POC, therapy schedule, therapy goals, edema management, pain management, discharge plan, expected TKR recovery - Assessment/Plan Assessment: R KNEE ROM: 0-110 degrees. Ms. Myers is progressing well in therapy. Patient performs mobility with S with use of a RW. Patient able to negotiate 6 steps with single rail and SPC. Patient has 0-110 degrees of motion in the R knee in supine with some reports of pain/discomfort. Patient has increased posterior ecchymosis on RLE; kinesiotape was applied today to assist with edema/bruising management. PT recommends continued skilled PT to maximize safety and independence with all mobility s/p elective R TKR prior to home discharge with outpatient PT services. - Goals Timeframe: 5 days Goals: mod I, 1000 feet, all surfaces, RW. mod I with RW, all transfers including car transfer. mod I with bed/mat mobility. 1 flight of steps with single rail and SPC with DS - Provider Therapist: Pauline Palacios PT, DPT License Number: [id number] Occupational Therapy - Arousal/Attention/Orientation Patient Orientation: Person, Place, Time, Appropriate to Age, Appropriate to Situation - ADL/IADL Self Feeding: Set-up Help Grooming: Supervision, Set-up Help Bathing-Upper Extremity: Supervision, Set-up Help Bathing-Lower Extremity: Verbal Cues, Set-up Help, Minimal Assistance Dressing-Upper Extremity: Independent, Set-up Help Dressing-Lower Extremity: Verbal Cues, Set-up Help, Minimal Assistance Comment: showering tasks: needs Mod/Max assist for lower body washing - Sitting Balance Static Sitting: Independent without upper extremity support Dynamic Sitting: Reaches across midline, Reaches out of base of support, Reaches within base of support, Requires supervision - Transfers Wheelchair to Bed Transfers: Verbal Cues, Set-up Help, Minimal Assistance Toilet Transfers: Verbal Cues, Set-up Help, Minimal Assistance Comment: + commode over toilet - Pain Pain (assessed during therapy session): 7 Alleviating Techniques: Ice, Position Change, Elevation, Distraction, Exercise, Inactivity Comment: R knee - Insight/Carryover Insight/Carryover: Good - Patient/Family Education Comment: HEP, importance of ROM, importance of OOB and using bed to sleep and not to rest during day, safety, balance, use of DME, mobility, POC, therapy schedule, therapy goals, edema management, pain management, discharge plan, expected TKR recovery - Assessment/Plan Assessment: R KNEE ROM: 0-110 degrees. Ms. Myers is progressing well in therapy. Patient performs mobility with S with use of a RW. Patient able to negotiate 6 steps with single rail and SPC. Patient has 0-110 degrees of motion in the R knee in supine with some reports of pain/discomfort. Patient has increased posterior ecchymosis on RLE; kinesiotape was applied today to assist with edema/bruising management. PT recommends continued skilled PT to maximize safety and independence with all mobility s/p elective R TKR prior to home discharge with outpatient PT services. - Goals Timeframe: 5 days Goals: mod I, 1000 feet, all surfaces, RW. mod I with RW, all transfers including car transfer. mod I with bed/mat mobility. 1 flight of steps with single rail and SPC with DS - Provider Therapist: Kathy WEBER/[facility] - Plan Assessment: R KNEE ROM: 0-110 degrees. Ms. Myers is progressing well in therapy. Patient performs mobility with S with use of a RW. Patient able to negotiate 6 steps with single rail and SPC. Patient has 0-110 degrees of motion in the R knee in supine with some reports of pain/discomfort. Patient has increased posterior ecchymosis on RLE; kinesiotape was applied today to assist with edema/bruising management. PT recommends continued skilled PT to maximize safety and independence with all mobility s/p elective R TKR prior to home discharge with outpatient PT services. Recreational Therapy - Participation Participation: Monitors His/Her Own Leisure Time - Attendance Attendance: 3-5 times per week - Activities Leisure Activities: Television - Socialization Level of Socialization: Initiates/interacts freely with care givers and peer - Diversional Time Diversional Time: reading, teleivision - Assessment Assessment/Plan: R KNEE ROM: 0-110 degrees. Ms. Myers is progressing well in therapy. Patient performs mobility with S with use of a RW. Patient able to negotiate 6 steps with single rail and SPC. Patient has 0-110 degrees of motion in the R knee in supine with some reports of pain/discomfort. Patient has increased posterior ecchymosis on RLE; kinesiotape was applied today to assist with edema/bruising management. PT recommends continued skilled PT to maximize safety and independence with all mobility s/p elective R TKR prior to home discharge with outpatient PT services. - Provider Therapist: Jaclyn Pérez, RHEUMATOLOGIST #[id number] Nutrition - Current Diet Current Diet/ Supplement/ Feedings: Heart healthy diet - Appetite Percent Meal Consumed: 75-100% - Assessment/Goals/Time Frame Assessment/Goals/Time Frame: Pt at moderate nutritional risk. goal: 1. Pt to consume 75-100% of meals. Follow-up due on 01/13/2017 - Provider Provider: Brie Hassan RD Case Management - Discharge Plan Discharge Plan: Home alone Rehabilitation Plan - Discharge Plan Estimated Date of Discharge: 01/14/17 Discharge to: Home
--- NOTE | 2017-01-10 13:34 | CP.PCM.PN ---
Subjective - Date & Time of Evaluation Date of Evaluation: 01/10/17 Time of Evaluation: 13:33 - Subjective Subjective: Patient seen in room doing very well right knee aquacel with no strike through no constipation good ROM making excellent gains will be set for d/c this monday continue current care to that point Objective - Vital Signs/Intake and Output Vital Signs (last 24 hours): Temp Pulse Resp BP Pulse Ox 98.0 F 81 20 121/73 96 01/10/17 08:22 01/10/17 08:44 01/10/17 08:22 01/10/17 08:44 01/10/17 08:22 - Medications Medications: Current Medications Acetaminophen (Tylenol 325mg Tab) 325 mg PO Q6 PRN PRN Reason: Pain, moderate (4-7) Last Admin: 01/08/17 22:14 Dose: 325 mg Al Hydrox/Mg Hydrox/Simethicone (Maalox Plus 30 Ml) 30 ml PO Q4 PRN PRN Reason: Heartburn Artificial Tears (Artificial Tears) 2 drop OU Q6 PRN PRN Reason: Dry eyes Aspirin (Ecotrin) 325 mg PO BID [facility] Last Admin: 01/10/17 08:43 Dose: 325 mg Bisacodyl (Dulcolax) 10 mg RC DAILY PRN PRN Reason: Constipation Celecoxib (Celebrex) 200 mg PO DAILY [facility] Last Admin: 01/10/17 08:46 Dose: 200 mg Docusate Sodium (Colace) 100 mg PO BID [facility] Last Admin: 01/10/17 08:43 Dose: Not Given Ferrous Gluconate (Fergon) 324 mg PO DAILY [facility] Last Admin: 01/10/17 09:00 Dose: 324 mg Gabapentin (Neurontin) 300 mg PO BID PRN PRN Reason: Muscle spasm Last Admin: 01/07/17 06:26 Dose: 300 mg Gabapentin (Neurontin) 300 mg PO TID [facility] Last Admin: 01/10/17 12:57 Dose: 300 mg Levothyroxine Sodium (Synthroid) 112 mcg PO DAILY@0630 [facility] Last Admin: 01/10/17 06:33 Dose: 112 mcg Lisinopril (Zestril) 10 mg PO DAILY [facility] Last Admin: 01/10/17 08:44 Dose: 10 mg Ondansetron HCl (Zofran Tab) 4 mg PO Q4 PRN PRN Reason: Nausea/Vomiting Pantoprazole Sodium (Protonix Ec Tab) 40 mg PO DAILY [facility] Last Admin: 01/10/17 08:45 Dose: 40 mg Sennosides (Senokot Tab) 17.2 mg PO DAILY [facility] Last Admin: 01/10/17 08:45 Dose: Not Given Tramadol HCl (Ultram) 50 mg PO Q6 PRN PRN Reason: Pain, severe (8-10) Last Admin: 01/10/17 08:41 Dose: 50 mg - Labs Labs: 01/06/17 11:27 01/06/17 11:27 PT 10.4 SECONDS (9.6-11.2) 01/06/17 11:27 INR 1.00 (0.92-1.08) 01/06/17 11:27 APTT 23.3 SECONDS (23.3-32.5) 01/06/17 11:27
[2017-01-11] MEDS: Levothyroxine 112 MCG TAB PO SCH (06:11)
[2017-01-11] MEDS: Pantoprazole 40 mg EC Tab PO SCH (08:20)
[2017-01-11] MEDS: Aspirin 325 mg EC Tablets PO SCH ×2 (08:20→17:53)
--- NOTE | 2017-01-11 12:55 | CP.PCM.PN ---
Subjective - Date & Time of Evaluation Date of Evaluation: 01/11/17 Time of Evaluation: 10:30 - Subjective Subjective: Pt seen and examined. Claimed she was doing okay and do not need too much pain medication. Objective - Vital Signs/Intake and Output Vital Signs (last 24 hours): Temp Pulse Resp BP Pulse Ox 97.5 F L 83 20 105/52 L 99 01/11/17 10:00 01/11/17 10:00 01/11/17 10:00 01/11/17 10:00 01/11/17 10:00 - Medications Medications: Current Medications Acetaminophen (Tylenol 325mg Tab) 325 mg PO Q6 PRN PRN Reason: Pain, moderate (4-7) Last Admin: 01/11/17 08:18 Dose: 325 mg Al Hydrox/Mg Hydrox/Simethicone (Maalox Plus 30 Ml) 30 ml PO Q4 PRN PRN Reason: Heartburn Artificial Tears (Artificial Tears) 2 drop OU Q6 PRN PRN Reason: Dry eyes Aspirin (Ecotrin) 325 mg PO BID COUNT INCLUDES [facility] Last Admin: 01/11/17 08:20 Dose: 325 mg Bisacodyl (Dulcolax) 10 mg RC DAILY PRN PRN Reason: Constipation Celecoxib (Celebrex) 200 mg PO DAILY COUNT INCLUDES [facility] Last Admin: 01/11/17 08:21 Dose: 200 mg Docusate Sodium (Colace) 100 mg PO BID COUNT INCLUDES [facility] Last Admin: 01/11/17 08:21 Dose: Not Given Ferrous Gluconate (Fergon) 324 mg PO DAILY COUNT INCLUDES [facility] Last Admin: 01/11/17 08:20 Dose: 324 mg Gabapentin (Neurontin) 300 mg PO BID PRN PRN Reason: Muscle spasm Last Admin: 01/07/17 06:26 Dose: 300 mg Gabapentin (Neurontin) 300 mg PO TID COUNT INCLUDES [facility] Last Admin: 01/11/17 08:21 Dose: Not Given Levothyroxine Sodium (Synthroid) 112 mcg PO DAILY@0630 [facility] Last Admin: 01/11/17 06:11 Dose: 112 mcg Lisinopril (Zestril) 10 mg PO DAILY [facility]CLUD[facility] Last Admin: 01/11/17 08:22 Dose: 10 mg Ondansetron HCl (Zofran Tab) 4 mg PO Q4 PRN PRN Reason: Nausea/Vomiting Pantoprazole Sodium (Protonix Ec Tab) 40 mg PO DAILY [facility]CLUD[facility] Last Admin: 01/11/17 08:20 Dose: 40 mg Sennosides (Senokot Tab) 17.2 mg PO DAILY COUNT [facility]CLUD[facility] Last Admin: 01/11/17 08:21 Dose: Not Given Tramadol HCl (Ultram) 50 mg PO Q6 PRN PRN Reason: Pain, severe (8-10) Last Admin: 01/11/17 06:14 Dose: 50 mg - Labs Labs: 01/06/17 11:27 01/06/17 11:27 PT 10.4 SECONDS (9.6-11.2) 01/06/17 11:27 INR 1.00 (0.92-1.08) 01/06/17 11:27 APTT 23.3 SECONDS (23.3-32.5) 01/06/17 11:27 - Constitutional Appears: No Acute Distress - Head Exam Head Exam: ATRAUMATIC - Eye Exam Eye Exam: absent: Scleral icterus - ENT Exam ENT Exam: Mucous Membranes Moist - Neck Exam Neck Exam: absent: Meningismus - Respiratory Exam Respiratory Exam: absent: Rhonchi, Wheezes, Respiratory Distress - Cardiovascular Exam Cardiovascular Exam: REGULAR RHYTHM, +S1, +S2 - GI/Abdominal Exam GI & Abdominal Exam: Soft. absent: Tenderness - Rectal Exam Rectal Exam: Deferred - Neurological Exam Neurological Exam: Alert, Oriented x3 - Psychiatric Exam Psychiatric exam: Normal Affect - Skin Skin Exam: Dry, Intact Assessment and Plan (1) Status post right knee replacement Status: Acute (2) Hypothyroid Status: Chronic (3) HTN (hypertension) Status: Chronic (4) Fibromyalgia Status: Chronic (5) KALINA (obstructive sleep apnea) Status: Chronic - Assessment and Plan (Free Text) Assessment: 76 yo female with PMH HTN, Hypothyroidism, obesity, sleep apnea, Osteoarthritis , asthma, fibromyalgia and glaucoma had right total knee replacement on 01/03/17 in [facility] for [facility]. She was transferred here for PT. 1. s/p Right TKR continue PT/OT DVT prophylaxis with ASA 325 mg po BID as per ortho 2. Hypothryroidism continue Synthroid 3. Hypertension BP stable continue Lisinopril 4. Morbid Obesity s/p lap band surgery 5. Fibromyalgia continue Gabapentin 6. Sleep apnea on CPAP at night 8. DVT prophylaxis on ASA BID
[2017-01-12] MEDS: Levothyroxine 112 MCG TAB PO SCH (06:29)
[2017-01-12] MEDS: Aspirin 325 mg EC Tablets PO SCH ×2 (08:12→17:25)
[2017-01-12] MEDS: Pantoprazole 40 mg EC Tab PO SCH (08:13)
--- NOTE | 2017-01-12 11:59 | CP.PCM.PN ---
Subjective - Date & Time of Evaluation Date of Evaluation: 01/12/17 Time of Evaluation: 11:59 - Subjective Subjective: Doing well with physical therapy. Adequate pain management. Seen this morning in the gym. Plan for discharge home this coming . Objective - Vital Signs/Intake and Output Vital Signs (last 24 hours): Temp Pulse Resp BP Pulse Ox 98.4 F 84 20 145/68 97 01/12/17 08:20 01/12/17 08:20 01/12/17 08:20 01/12/17 08:20 01/12/17 08:20 - Medications Medications: Current Medications Acetaminophen (Tylenol 325mg Tab) 325 mg PO Q6 PRN PRN Reason: Pain, moderate (4-7) Last Admin: 01/12/17 08:11 Dose: 325 mg Al Hydrox/Mg Hydrox/Simethicone (Maalox Plus 30 Ml) 30 ml PO Q4 PRN PRN Reason: Heartburn Artificial Tears (Artificial Tears) 2 drop OU Q6 PRN PRN Reason: Dry eyes Aspirin (Ecotrin) 325 mg PO BID [facility] Last Admin: 01/12/17 08:12 Dose: 325 mg Bisacodyl (Dulcolax) 10 mg RC DAILY PRN PRN Reason: Constipation Celecoxib (Celebrex) 200 mg PO DAILY [facility] Last Admin: 01/12/17 08:12 Dose: 200 mg Docusate Sodium (Colace) 100 mg PO BID [facility] Last Admin: 01/12/17 08:13 Dose: 100 mg Ferrous Gluconate (Fergon) 324 mg PO DAILY [facility] Last Admin: 01/12/17 08:14 Dose: 324 mg Gabapentin (Neurontin) 300 mg PO BID PRN PRN Reason: Muscle spasm Last Admin: 01/07/17 06:26 Dose: 300 mg Levothyroxine Sodium (Synthroid) 112 mcg PO DAILY@0630 [facility] Last Admin: 01/12/17 06:29 Dose: 112 mcg Lisinopril (Zestril) 10 mg PO DAILY [facility] Last Admin: 01/12/17 08:13 Dose: 10 mg Ondansetron HCl (Zofran Tab) 4 mg PO Q4 PRN PRN Reason: Nausea/Vomiting Pantoprazole Sodium (Protonix Ec Tab) 40 mg PO DAILY [facility] Last Admin: 01/12/17 08:13 Dose: 40 mg Sennosides (Senokot Tab) 17.2 mg PO DAILY [facility] Last Admin: 01/12/17 08:14 Dose: Not Given Tramadol HCl (Ultram) 50 mg PO Q6 PRN PRN Reason: Pain, severe (8-10) Last Admin: 01/12/17 07:02 Dose: 50 mg - Labs Labs: 01/06/17 11:27 01/06/17 11:27 PT 10.4 SECONDS (9.6-11.2) 01/06/17 11:27 INR 1.00 (0.92-1.08) 01/06/17 11:27 APTT 23.3 SECONDS (23.3-32.5) 01/06/17 11:27 Assessment and Plan (1) KALINA (obstructive sleep apnea) Status: Chronic (2) Fibromyalgia Status: Chronic (3) Hyperlipidemia Status: Chronic (4) Hypothyroid Status: Chronic (5) Status post right knee replacement Status: Acute (6) History of bariatric surgery Status: Inactive
--- NOTE | 2017-01-12 19:15 | CP.PCM.PN ---
Subjective - Date & Time of Evaluation Date of Evaluation: 01/12/17 Time of Evaluation: 19:15 - Subjective Subjective: Patient seen in room and doing well no CP and no SOB moving bowels ready for d/c 01/14/17 Objective - Vital Signs/Intake and Output Vital Signs (last 24 hours): Temp Pulse Resp BP Pulse Ox 98.4 F 84 20 145/68 97 01/12/17 08:20 01/12/17 08:20 01/12/17 08:20 01/12/17 08:20 01/12/17 08:20 - Medications Medications: Current Medications Acetaminophen (Tylenol 325mg Tab) 325 mg PO Q6 PRN PRN Reason: Pain, moderate (4-7) Last Admin: 01/12/17 08:11 Dose: 325 mg Al Hydrox/Mg Hydrox/Simethicone (Maalox Plus 30 Ml) 30 ml PO Q4 PRN PRN Reason: Heartburn Artificial Tears (Artificial Tears) 2 drop OU Q6 PRN PRN Reason: Dry eyes Aspirin (Ecotrin) 325 mg PO BID [facility] Last Admin: 01/12/17 17:25 Dose: 325 mg Bisacodyl (Dulcolax) 10 mg RC DAILY PRN PRN Reason: Constipation Celecoxib (Celebrex) 200 mg PO DAILY [facility] Last Admin: 01/12/17 08:12 Dose: 200 mg Docusate Sodium (Colace) 100 mg PO BID [facility] Last Admin: 01/12/17 17:23 Dose: 100 mg Ferrous Gluconate (Fergon) 324 mg PO DAILY [facility] Last Admin: 01/12/17 08:14 Dose: 324 mg Gabapentin (Neurontin) 300 mg PO BID PRN PRN Reason: Muscle spasm Last Admin: 01/07/17 06:26 Dose: 300 mg Levothyroxine Sodium (Synthroid) 112 mcg PO DAILY@0630 [facility] Last Admin: 01/12/17 06:29 Dose: 112 mcg Lisinopril (Zestril) 10 mg PO DAILY [facility] Last Admin: 01/12/17 08:13 Dose: 10 mg Ondansetron HCl (Zofran Tab) 4 mg PO Q4 PRN PRN Reason: Nausea/Vomiting Pantoprazole Sodium (Protonix Ec Tab) 40 mg PO DAILY [facility] Last Admin: 01/12/17 08:13 Dose: 40 mg Sennosides (Senokot Tab) 17.2 mg PO DAILY [facility] Last Admin: 01/12/17 17:24 Dose: 17.2 mg Tramadol HCl (Ultram) 50 mg PO Q6 PRN PRN Reason: Pain, severe (8-10) Last Admin: 01/12/17 13:08 Dose: 50 mg - Labs Labs: 01/06/17 11:27 01/06/17 11:27 PT 10.4 SECONDS (9.6-11.2) 01/06/17 11:27 INR 1.00 (0.92-1.08) 01/06/17 11:27 APTT 23.3 SECONDS (23.3-32.5) 01/06/17 11:27
[2017-01-13] MEDS: Levothyroxine 112 MCG TAB PO SCH (06:42)
[2017-01-13] MEDS: Aspirin 325 mg EC Tablets PO SCH ×2 (08:17→17:29)
[2017-01-13] MEDS: Pantoprazole 40 mg EC Tab PO SCH (08:18)
--- NOTE | 2017-01-13 10:56 | CP.PCM.PN ---
Subjective - Date & Time of Evaluation Date of Evaluation: 01/13/17 Time of Evaluation: 10:54 - Subjective Subjective: Patient seen in room doing very well. ROM approaching 120 degrees Pain is well controlled I removed the aquacel dressing and there was minimal old blood present skin CDI one superior suture Cleaned line with Betadine and re-applied steristrips. set for d/c tomorrow Objective - Vital Signs/Intake and Output Vital Signs (last 24 hours): Temp Pulse Resp BP Pulse Ox 97.7 F 74 20 136/66 94 L 01/13/17 08:08 01/13/17 08:08 01/13/17 08:08 01/13/17 08:19 01/13/17 08:08 - Medications Medications: Current Medications Acetaminophen (Tylenol 325mg Tab) 325 mg PO Q6 PRN PRN Reason: Pain, moderate (4-7) Last Admin: 01/12/17 23:31 Dose: 325 mg Al Hydrox/Mg Hydrox/Simethicone (Maalox Plus 30 Ml) 30 ml PO Q4 PRN PRN Reason: Heartburn Artificial Tears (Artificial Tears) 2 drop OU Q6 PRN PRN Reason: Dry eyes Aspirin (Ecotrin) 325 mg PO BID [facility] Last Admin: 01/13/17 08:17 Dose: 325 mg Bisacodyl (Dulcolax) 10 mg RC DAILY PRN PRN Reason: Constipation Celecoxib (Celebrex) 200 mg PO DAILY [facility] Last Admin: 01/13/17 08:18 Dose: 200 mg Docusate Sodium (Colace) 100 mg PO BID [facility] Last Admin: 01/13/17 08:18 Dose: Not Given Ferrous Gluconate (Fergon) 324 mg PO DAILY [facility] Last Admin: 01/13/17 08:19 Dose: 324 mg Gabapentin (Neurontin) 300 mg PO BID PRN PRN Reason: Muscle spasm Last Admin: 01/13/17 08:18 Dose: 300 mg Levothyroxine Sodium (Synthroid) 112 mcg PO DAILY@0630 [facility] Last Admin: 01/13/17 06:42 Dose: 112 mcg Lisinopril (Zestril) 10 mg PO DAILY [facility] Last Admin: 01/13/17 08:19 Dose: 10 mg Ondansetron HCl (Zofran Tab) 4 mg PO Q4 PRN PRN Reason: Nausea/Vomiting Pantoprazole Sodium (Protonix Ec Tab) 40 mg PO DAILY [facility] Last Admin: 01/13/17 08:18 Dose: 40 mg Sennosides (Senokot Tab) 17.2 mg PO DAILY [facility] Last Admin: 01/13/17 08:19 Dose: Not Given Tramadol HCl (Ultram) 50 mg PO Q6 PRN PRN Reason: Pain, severe (8-10) Last Admin: 01/13/17 05:10 Dose: 50 mg - Labs Labs: 01/06/17 11:27 01/06/17 11:27 PT 10.4 SECONDS (9.6-11.2) 01/06/17 11:27 INR 1.00 (0.92-1.08) 01/06/17 11:27 APTT 23.3 SECONDS (23.3-32.5) 01/06/17 11:27
[2017-01-14] MEDS: Levothyroxine 112 MCG TAB PO SCH (06:34)
[2017-01-14] MEDS: Aspirin 325 mg EC Tablets PO SCH (09:21)
[2017-01-14 09:23] VITALS: BP 120/63; PULSE 78
[2017-01-14] MEDS: Pantoprazole 40 mg EC Tab PO SCH (09:23)
[2017-01-14 09:35] VITALS: TEMP 98.3; O2SAT 96
--- NOTE | 2017-01-14 11:28 | CP.PCM.DIS ---
Provider - Provider Date of Admission: 01/05/17 16:34 Attending physician: Sindhu Cruz MD Primary care physician: Dr Chatterjee Consults: Dr Samantha Chatterjee Time Spent in preparation of Discharge (in minutes): 30 Diagnosis - Discharge Diagnosis (1) Status post right knee replacement Status: Acute Priority: High Comment: Did well with PT and OT. continue Celebrex and Tramadol for pain (2) Hypothyroid Status: Chronic Priority: Medium Comment: continue Levothyroxine 112mcg PO daily (3) HTN (hypertension) Status: Chronic Comment: BP controlled. continue Lisinopril (4) Fibromyalgia Status: Chronic Priority: Medium Comment: continue Neurontin (5) KALINA (obstructive sleep apnea) Status: Chronic Priority: High Comment: continue CPAP at night Hospital Course - Lab Results Lab Results: Most Recent Lab Values WBC 10.7 K/uL (4.8-10.8) 01/06/17 11:27 RBC 3.69 Mil/uL (3.80-5.20) L 01/06/17 11:27 Hgb 11.4 g/dL (12.0-16.0) L 01/06/17 11:27 Hct 33.5 % (34.0-47.0) L 01/06/17 11:27 MCV 90.8 fl (81.0-99.0) 01/06/17 11:27 MCH 31.0 pg (27.0-31.0) 01/06/17 11:27 MCHC 34.2 g/dL (33.0-37.0) 01/06/17 11:27 RDW 13.8 % (11.5-14.5) 01/06/17 11:27 Plt Count 166 K/uL (130-400) 01/06/17 11:27 PT 10.4 SECONDS (9.6-11.2) 01/06/17 11:27 INR 1.00 (0.92-1.08) 01/06/17 11:27 APTT 23.3 SECONDS (23.3-32.5) 01/06/17 11:27 Sodium 138 mmol/l (132-148) 01/06/17 11:27 Potassium 4.2 MMOL/L (3.6-5.0) 01/06/17 11:27 Chloride 102 mmol/L (98-107) 01/06/17 11:27 Carbon Dioxide 30 mmol/L (22-30) 01/06/17 11:27 Anion Gap 10 (10-20) 01/06/17 11:27 BUN 24 mg/dl (7-17) H 01/06/17 11:27 Creatinine 0.8 mg/dL (0.7-1.2) 01/06/17 11:27 Est GFR ( Amer) > 60 01/06/17 11:27 Est GFR (Non-Af Amer) > 60 01/06/17 11:27 Random Glucose 109 mg/dL (65-105) H 01/06/17 11:27 Calcium 10.1 mg/dL (8.4-10.2) 01/06/17 11:27 - Hospital Course Hospital Course: 76 yo female with history of HTN, Hypothyroidism, Sleep Apnea, Asthma and Fibromyalgia had right TKR on 01/03/2017 in [facility]. She was transferred and admitted to Acute Rehab for continuation of her recuperation and physical therapy. Pt did well and is now ready for discharge. Discharge Exam - Head Exam Head Exam: ATRAUMATIC - Eye Exam Eye Exam: Normal appearance - ENT Exam ENT Exam: Mucous Membranes Moist - Respiratory Exam Respiratory Exam: absent: Rhonchi, Wheezes, Respiratory Distress - Cardiovascular Exam Cardiovascular Exam: REGULAR RHYTHM, +S1, +S2 - GI/Abdominal Exam GI & Abdominal Exam: Soft. absent: Tenderness - Rectal Exam Rectal Exam: Deferred - Extremities Exam Extremities exam: joint swelling (slight swelling on right knee but no sign of infection or inflammation) - Back Exam Back exam: NORMAL INSPECTION - Neurological Exam Neurological exam: Alert, Oriented x3 - Psychiatric Exam Psychiatric exam: Normal Affect - Skin Skin Exam: Dry, Intact Discharge Plan - Discharge Medications Prescriptions: Celecoxib [celeBREX] 200 mg PO DAILY #20 traMADol [Ultram] 50 mg PO Q6 #40 - Follow Up Plan Condition: GOOD Disposition: HOME/ ROUTINE Instructions: Lisinopril (By mouth), Aspirin (By mouth), Gabapentin (By mouth) , Tramadol (By mouth), Celecoxib (By mouth), Asthma (DC), Sleep Apnea (DC), Osteoporosis (GEN), Hypothyroidism (DC), Rheumatoid Arthritis (GEN), Gastroesophageal Reflux Disease (DC), Chronic Hypertension (DC), Knee Replacement (DC)
--- NOTE | 2017-02-13 19:31 | CP.PCM.DIS ---
Provider - Provider Date of Admission: 01/05/17 16:34 Attending physician: Sindhu Cruz MD Time Spent in preparation of Discharge (in minutes): 5 [employer] Quality [employer] Manager Discharge Summary Discharge date: 01/14/17 - Review of Plan of Care Physical Therapy: Attained Occupational Therapy: Attained Recreational Therapy: Attained - Goal Attainment Ambulation: Attained Status on discharge: Greater than 200 Feet Assistive device: Rolling Walker Level of assistance: Supervision ADL: Attained Level of assistance: Supervision Transfer: Attained Level of assistance: Supervision Speech Comprehension: No Impairment - Barriers to discharge identified [X]: No significant barriers to discharge this patient. - Plan for patients rehabilitation in the Outpatient: Physical Therapy Discharge instructions provided to patient and family: Instructions with medications, Follow up with PMD and/or surgeon Hospital Course - Lab Results Lab Results: Most Recent Lab Values WBC 10.7 K/uL (4.8-10.8) 01/06/17 11:27 RBC 3.69 Mil/uL (3.80-5.20) L 01/06/17 11:27 Hgb 11.4 g/dL (12.0-16.0) L 01/06/17 11:27 Hct 33.5 % (34.0-47.0) L 01/06/17 11:27 MCV 90.8 fl (81.0-99.0) 01/06/17 11:27 MCH 31.0 pg (27.0-31.0) 01/06/17 11:27 MCHC 34.2 g/dL (33.0-37.0) 01/06/17 11:27 RDW 13.8 % (11.5-14.5) 01/06/17 11:27 Plt Count 166 K/uL (130-400) 01/06/17 11:27 PT 10.4 SECONDS (9.6-11.2) 01/06/17 11:27 INR 1.00 (0.92-1.08) 01/06/17 11:27 APTT 23.3 SECONDS (23.3-32.5) 01/06/17 11:27 Sodium 138 mmol/l (132-148) 01/06/17 11:27 Potassium 4.2 MMOL/L (3.6-5.0) 01/06/17 11:27 Chloride 102 mmol/L (98-107) 01/06/17 11:27 Carbon Dioxide 30 mmol/L (22-30) 01/06/17 11:27 Anion Gap 10 (10-20) 01/06/17 11:27 BUN 24 mg/dl (7-17) H 01/06/17 11:27 Creatinine 0.8 mg/dL (0.7-1.2) 01/06/17 11:27 Est GFR ( Amer) > 60 01/06/17 11:27 Est GFR (Non-Af Amer) > 60 01/06/17 11:27 Random Glucose 109 mg/dL (65-105) H 01/06/17 11:27 Calcium 10.1 mg/dL (8.4-10.2) 01/06/17 11:27 Discharge Exam - Head Exam Head Exam: ATRAUMATIC Discharge Plan - Discharge Medications Prescriptions: Celecoxib [celeBREX] 200 mg PO DAILY #20 traMADol [Ultram] 50 mg PO Q6 #40 - Follow Up Plan Condition: GOOD Disposition: HOME/ ROUTINE Instructions: Lisinopril (By mouth), Aspirin (By mouth), Gabapentin (By mouth) , Tramadol (By mouth), Celecoxib (By mouth), Asthma (DC), Sleep Apnea (DC), Osteoporosis (GEN), Hypothyroidism (DC), Rheumatoid Arthritis (GEN), Gastroesophageal Reflux Disease (DC), Chronic Hypertension (DC), Knee Replacement (DC)
== END 2017-01-14 13:40 | disposition home or self-care (01) | DRG 560 ==
PROVIDERS: ADMIT Hospitalist; ATTEND Hospitalist
PROC: F07Z9FZ Gait Training/Functional Ambulation Treatment using Assistive, Adaptive, Supportive or Protective Equipment (ICD-10-PCS; principal; 2017-01-05)
PROC: F07L6FZ Therapeutic Exercise Treatment of Musculoskeletal System - Lower Back / Lower Extremity using Assistive, Adaptive, Supportive or Protective Equipment (ICD-10-PCS; 2017-01-05)
PROC: F08Z4FZ Home Management Treatment using Assistive, Adaptive, Supportive or Protective Equipment (ICD-10-PCS; 2017-01-06)
DX: Z47.1 Aftercare following joint replacement surgery (principal); Z68.41 Body mass index [BMI] 40.0-44.9, adult; I10 Essential (primary) hypertension; E66.01 Morbid (severe) obesity due to excess calories; M19.90 Unspecified osteoarthritis, unspecified site; E78.5 Hyperlipidemia, unspecified; E03.9 Hypothyroidism, unspecified; G47.33 Obstructive sleep apnea (adult) (pediatric); J45.909 Unspecified asthma, uncomplicated; M10.9 Gout, unspecified; M79.7 Fibromyalgia; H40.9 Unspecified glaucoma; Z96.651 Presence of right artificial knee joint; K59.00 Constipation, unspecified; K21.9 Gastro-esophageal reflux disease without esophagitis; M51.36 Other intervertebral disc degeneration, lumbar region; Z91.040 Latex allergy status; Z88.3 Allergy status to other anti-infective agents; Z98.84 Bariatric surgery status; Z85.3 Personal history of malignant neoplasm of breast; Z79.82 Long term (current) use of aspirin; Z87.01 Personal history of pneumonia (recurrent)

== ENCOUNTER 2017-04-08 13:11 | Inpatient (IN) | payer OTHER ==
[2017-04-08 14:20] VITALS: BMI 39.9
[2017-04-08] MEDS ORDERED: Oxycodone/Acetaminophen 5/325 mg Tab PO PRN (15:01)
--- NOTE | 2017-04-08 16:12 | CP.PCM.HP ---
History of Present Illness - History of Present Illness History of Present Illness: 77 yo female with history of HTN, Hypothyroidism, Obesity, Sleep Apnea, Asthma, Fibromyalgia and Osteoarthritis had left TKR at [facility] on 04/05/2017 after failing conservative management of chronic pain on both knees. She already had a successful right TKR and did well with physical therapy 3 months ago. Patient is again transferred and admitted in TCU for post surgical management and physical therapy. Present on Admission - Present on Admission Any Indicators Present on Admission: No History of DVT/PE: No History of Uncontrolled Diabetes: No Urinary Catheter: No Decubitus Ulcer Present: No Review of Systems - Review of Systems All systems: reviewed and no additional remarkable complaints except (aside from those mentioned above, 12 point system review were negative by me) Past Patient History - Infectious Disease Hx of Infectious Diseases: None - Tetanus Immunizations Tetanus Immunization: Unknown - Past Medical History & Family History Past Medical History?: Yes Pertinent Family History: mother had [facility] at age 52 - Past Social History Smoking Status: Former Smoker (discontinued 2000) Chewing Tobacco Use: No Alcohol: Social Home Situation {Lives}: Alone - CARDIAC Hx Hypertension: Yes - PULMONARY Hx Asthma: Yes Hx Pneumonia: Yes Hx Sleep Apnea: Yes - NEUROLOGICAL Hx Vertigo: Yes - HEENT Hx Glaucoma: Yes - RENAL Hx Chronic Kidney Disease: No - ENDOCRINE/METABOLIC Hx 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) - HEMATOLOGICAL/ONCOLOGICAL Hx Blood Disorders: No Hx Human Immunodeficiency Virus (HIV): No - INTEGUMENTARY Hx Dermatological Problems: No - MUSCULOSKELETAL/RHEUMATOLOGICAL Hx Arthritis: Yes Hx Degenerative Joint Disease: Yes Hx Gout: Yes Hx Herniated Disk: Yes Hx Osteoarthritis: Yes - GASTROINTESTINAL Hx Gastrointestinal Disorders: Yes Hx Gastroesophageal Reflux: Yes - GENITOURINARY/GYNECOLOGICAL Hx Genitourinary Disorders: No - PSYCHIATRIC Hx Psychophysiologic Disorder: No - SURGICAL HISTORY Hx Breast Biopsy: Yes Hx Joint Replacement: Yes (right TKR in December,) Other/Comment: Left breast lumpectomy. Lap band surgery - ANESTHESIA Hx Anesthesia: Yes Hx Anesthesia Reactions: No Hx Malignant Hyperthermia: No Meds Allergies/Adverse Reactions: Allergies Allergy/AdvReac Type Severity Reaction Status Date / Time azithromycin [From Zithromax] Allergy RASH Verified 01/05/17 17:58 erythromycin base Allergy RASH Verified 01/05/17 17:58 fluoxetine HCl [From Prozac] Allergy RASH Verified 01/05/17 17:58 Latex, Natural Rubber Allergy REDNESS Verified 01/05/17 17:58 peanut Allergy RASH Verified 01/05/17 17:58 plantain Allergy RASH Verified 01/05/17 17:58 pollen extracts Allergy RASH Verified 01/05/17 17:58 Physical Exam - Constitutional Appears: No Acute Distress - Head Exam Head Exam: ATRAUMATIC - Eye Exam Eye Exam: absent: Scleral icterus - ENT Exam ENT Exam: Mucous Membranes Moist - Neck Exam Neck exam: Negative for: Meningismus - Respiratory Exam Respiratory Exam: absent: Rhonchi, Wheezes, Respiratory Distress - Cardiovascular Exam Cardiovascular Exam: REGULAR RHYTHM, +S1, +S2 - GI/Abdominal Exam GI & Abdominal Exam: Soft. absent: Tenderness - Rectal Exam Rectal Exam: Deferred - Extremities Exam Extremities exam: Negative for: full ROM (limited ROM on left knee) - Back Exam Back exam: absent: tenderness - Neurological Exam Neurological exam: Alert, Oriented x3 - Psychiatric Exam Psychiatric exam: Normal Affect - Skin Skin Exam: Dry, Intact Assessment & Plan (1) Status post total knee replacement, left Status: Acute Comment: admit to TCU. PT/OT consult. continue pain management with Percocet (2) HTN (hypertension) Status: Chronic Comment: BP controlled. continue Lisinopril 10mg PO daily (3) Hypothyroid Status: Chronic Priority: Medium Comment: continue Levothyroxine 112mcg PO daily. TSH in am (4) KALINA (obstructive sleep apnea) Status: Chronic Priority: High Comment: continue CPAP at bedtime (5) Fibromyalgia Status: Chronic Priority: Medium Comment: Tramadol 50mg PO q6 prn (6) DVT prophylaxis Status: Acute Comment: ASA 325mg PO BID (per orthopedist)
[2017-04-08] MEDS ORDERED: Tuberculin 5 Units/0.1 ml Inj ID ONE (17:42)
[2017-04-08] MEDS: oxyCODONE 10 mg ER Tab (oxyCONTIN) PO SCH (21:36)
[2017-04-09] MEDS: Levothyroxine 112 MCG TAB PO SCH (06:30)
[2017-04-09] MEDS: Pantoprazole 40 mg EC Tab PO SCH (09:10)
[2017-04-09] MEDS: oxyCODONE 10 mg ER Tab (oxyCONTIN) PO SCH ×2 (09:14→21:15)
[2017-04-09 16:20] VITALS: RESP 20
[2017-04-10] MEDS: Levothyroxine 112 MCG TAB PO SCH (05:48)
[2017-04-10] MEDS: Pantoprazole 40 mg EC Tab PO SCH (08:19)
[2017-04-10] MEDS: oxyCODONE 10 mg ER Tab (oxyCONTIN) PO SCH ×2 (08:19→21:10)
[2017-04-11 07:30] LABS: SQUAMOUS EPITHIAL < 1 /hpf (0-5); URINE BACTERIA RARE (<OCC); URINE BILIRUBIN NEGATIVE (NEGATIVE); URINE BLOOD NEGATIVE (NEGATIVE); URINE CLARITY CLEAR (Clear); URINE COLOR YELLOW (YELLOW); URINE GLUCOSE (UA) NEG (Normal); URINE LEUKOCYTE ESTERASE NEG Leu/uL (Negative); URINE NITRATE NEGATIVE (NEGATIVE); URINE PROTEIN NEGATIVE (NEGATIVE); URINE UROBILINOGEN 0.2-1.0 mg/dL (0.2-1.0)
[2017-04-11] MEDS: oxyCODONE 10 mg ER Tab (oxyCONTIN) PO SCH ×2 (08:36→21:36)
[2017-04-11] MEDS: Levothyroxine 112 MCG TAB PO SCH (08:37)
[2017-04-11] MEDS: Pantoprazole 40 mg EC Tab PO SCH (08:37)
--- NOTE | 2017-04-11 14:37 | CP.PCM.PN ---
Subjective - Date & Time of Evaluation Date of Evaluation: 04/11/17 Time of Evaluation: 14:20 - Subjective Subjective: Hospitalist Progress Note (Patient was seen and examined at 2:20 PM 04/11/17 713-1 ) Very pleasant 77 year old female who is S/P Left TKR at the [facility] on 04/05/17. [facility] Currently upon FULL ROS: NO chest pain, NO palpitations, NO SOB/Cough/Wheezing, NO Abdominal Pain, NO n/v /d, (+) Constipation: has not had a bowel movement since Monday04/08/17, (+) Some burning with urination, NO lightheadedness/dizziness, NO headaches, NO new changes in vision/eye pain, NO new changes in hearing/ear pain , NO paresthesias, (+) Left Knee Pain S/P PT that feels like a "pulling" sensation and this is tolerable. Exam: HEENT: NCA, EOMI, PERRLA, NO lymphadenopathy, NO thyromegaly, NO pharyngeal erythema/exudate, Nasal Turbinates are moist/nonerythematous/nonedematous, Oral mucosa is moist Cardio: NS1 and NS2, NO M/R/G Resp: CTA B/L, NO R/R/W GI: BSx4, Soft, NT, ND, NO HSM, NO guarding/rebound tenderness Neuro: CN II through XII Extremities: Pulses are strong and equal, Capillary Refill is 2 seconds, Left Knee without signs of cellulitis but is slightly edematous Assessment and Plan: 1). S/P Left TKR 04/05/17 PT/OT ASA 325 mg PO 2x/day 2). HTN Lisinopril 10 mg PO 1x/day 3). Hypothyroidism Levothyroxine 112 mcg PO 1x/day 4). KALINA CPAP @ Bedtime 5). Fibromyalgia Tramadol 6). Constipation Colace 100 mg PO 2x/day PRN Constipation was changed to BID Dulcolax 10 mg PO x 1 dose ordered for today 7). Prophylactic Measure Tylenol 650 mg PO Q4H PRN Mild Pain Celecoxib 200 mg PO 1x/day Oxycodone 10 mg PO Q12H Percocet 5/325 mg 1 tab PO Q6H PRN Severe Pain Protonix 40 mg PO 1x/day F/U Urine Culture for complaints of burning with urination Objective - Vital Signs/Intake and Output Vital Signs (last 24 hours): Temp Pulse Resp BP Pulse Ox 97.9 F 75 20 126/52 L 99 04/11/17 07:55 04/11/17 08:37 04/11/17 07:55 04/11/17 08:37 04/11/17 07:55 - Medications Medications: Current Medications Acetaminophen (Tylenol 325mg Tab) 650 mg PO Q4 PRN PRN Reason: Pain, Mild (1-3) Aspirin (Aspirin) 325 mg PO BID [facility] Last Admin: 04/11/17 08:31 Dose: 325 mg Celecoxib (Celebrex) 200 mg PO DAILY [facility] Last Admin: 04/11/17 08:32 Dose: 200 mg Docusate Sodium (Colace) 100 mg PO BID PRN PRN Reason: Constipation Last Admin: 04/11/17 08:33 Dose: 100 mg Levothyroxine Sodium (Synthroid) 112 mcg PO DAILY@0630 [facility] Last Admin: 04/11/17 08:37 Dose: 112 mcg Lisinopril (Zestril) 10 mg PO DAILY [facility] Last Admin: 04/11/17 08:37 Dose: 10 mg Oxycodone HCl (Oxycontin Extended Release Tab) 10 mg PO Q12 [facility] Stop: 04/11/17 21:01 Last Admin: 04/11/17 08:36 Dose: 10 mg Oxycodone/Acetaminophen (Percocet 5/325 Mg Tab) 1 tab PO Q6 PRN PRN Reason: Pain, severe (8-10) Stop: 04/11/17 15:02 Last Admin: 04/09/17 05:00 Dose: 1 tab Pantoprazole Sodium (Protonix Ec Tab) 40 mg PO DAILY [facility] Last Admin: 04/11/17 08:37 Dose: 40 mg Tramadol HCl (Ultram) 50 mg PO Q6 PRN PRN Reason: Pain, moderate (4-7) Last Admin: 04/11/17 04:19 Dose: 50 mg
[2017-04-11] MEDS ORDERED: Bisacodyl 5mg EC Tab PO ONE (21:44)
[2017-04-12] MEDS: Levothyroxine 112 MCG TAB PO SCH (06:13)
[2017-04-12 07:10] LABS: BASO # 0.1 K/uL (0.0-0.2); BASO % 0.7 % (0.0-2.0); EOS # 0.4 K/uL (0.0-0.7); EOS % 3.5 % (0.0-4.0); HEMOGLOBIN 12.1 g/dL (12.0-16.0); LYMPH # 2.1 K/uL (1.0-4.3); LYMPH % 16.8 % (20.0-40.0); MEAN CELL VOLUME 90.2 fl (81.0-99.0); MEAN CORPUSCULAR HEMOGLOBIN 29.8 pg (27.0-31.0); MEAN PLATELET VOLUME 8.2 fl (7.2-11.7); MONO % 8.4 % (0.0-10.0); NEUT # 8.8 K/uL (1.8-7.0); NEUT % 70.6 % (50.0-75.0); NRBC % 0.1 % (0.0-0.0); RBC 4.06 Mil/uL (3.80-5.20); RED CELL DISTRIBUTION WIDTH 14.3 % (11.5-14.5); WHITE BLOOD COUNT 12.5 K/uL (4.8-10.8)
[2017-04-12 07:21] LABS: ALB/GLOB RATIO 1.3 (1.0-2.1); ALBUMIN 3.9 g/dL (3.5-5.0); ALT/SGPT 35 U/L (9-52); AST/SGOT 25 U/L (14-36); BLOOD UREA NITROGEN 22 mg/dl (7-17); CALCIUM 9.8 mg/dL (8.4-10.2); GFR AFRICAN-AMERICAN > 60; GFR NON-AFRICAN AMERICAN > 60
[2017-04-12] MEDS: Pantoprazole 40 mg EC Tab PO SCH (08:25)
[2017-04-13] MEDS: Levothyroxine 112 MCG TAB PO SCH (06:35)
[2017-04-13] MEDS: Pantoprazole 40 mg EC Tab PO SCH (08:44)
--- NOTE | 2017-04-13 14:32 | CP.PCM.CON ---
History of Present Illness - History of Present Illness History of Present Illness: Dr Singh PMR consultation on Rosemarie Myers who I have known more many years and used to treat her . She is now s/p left TKR. Excellent initial ROM and minimal pain and no strike through on the dressing. She failed conservative care. Dr Black at [facility] performed the surgery and had just done a very successful right TKR on 01/03/17 Review of Systems - EENT Eyes: absent: Blurred Vision Ears: absent: Decreased Hearing, Ear Discharge, Disequilibrium Nose/Mouth/Throat: absent: Nasal Congestion - Cardiovascular Cardiovascular: absent: Chest Pain - Respiratory Respiratory: absent: Cough, Dyspnea - Gastrointestinal Gastrointestinal: absent: Constipation - Musculoskeletal Musculoskeletal: absent: Muscle Cramps - Integumentary Integumentary: absent: Acne, Bleeding Lesions - Neurological Neurological: absent: Abnormal Movements, Burning Sensations Past Patient History - Infectious Disease Hx of Infectious Diseases: None - Tetanus Immunizations Tetanus Immunization: Unknown - Past Medical History & Family History Past Medical History?: Yes - Past Social History Smoking Status: Former Smoker (discontinued 2000) Chewing Tobacco Use: No Alcohol: Social Home Situation {Lives}: Alone - CARDIAC Hx Hypertension: Yes - PULMONARY Hx Asthma: Yes Hx Pneumonia: Yes Hx Sleep Apnea: Yes - NEUROLOGICAL Hx Vertigo: Yes - HEENT Hx Glaucoma: Yes - RENAL Hx Chronic Kidney Disease: No - ENDOCRINE/METABOLIC Hx 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) - HEMATOLOGICAL/ONCOLOGICAL Hx Blood Disorders: No Hx Human Immunodeficiency Virus (HIV): No - INTEGUMENTARY Hx Dermatological Problems: No - MUSCULOSKELETAL/RHEUMATOLOGICAL Hx Arthritis: Yes Hx Degenerative Joint Disease: Yes Hx Gout: Yes Hx Herniated Disk: Yes Hx Osteoarthritis: Yes - GASTROINTESTINAL Hx Gastrointestinal Disorders: Yes Hx Gastroesophageal Reflux: Yes - GENITOURINARY/GYNECOLOGICAL Hx Genitourinary Disorders: No - PSYCHIATRIC Hx Psychophysiologic Disorder: No - SURGICAL HISTORY Hx Breast Biopsy: Yes Hx Joint Replacement: Yes (right TKR in December,) Other/Comment: Left breast lumpectomy. Lap band surgery - ANESTHESIA Hx Anesthesia: Yes Hx Anesthesia Reactions: No Hx Malignant Hyperthermia: No Meds Allergies/Adverse Reactions: Allergies Allergy/AdvReac Type Severity Reaction Status Date / Time azithromycin [From Zithromax] Allergy RASH Verified 01/05/17 17:58 erythromycin base Allergy RASH Verified 01/05/17 17:58 fluoxetine HCl [From Prozac] Allergy RASH Verified 01/05/17 17:58 Latex, Natural Rubber Allergy REDNESS Verified 01/05/17 17:58 peanut Allergy RASH Verified 01/05/17 17:58 plantain Allergy RASH Verified 01/05/17 17:58 pollen extracts Allergy RASH Verified 01/05/17 17:58 - Medications Medications: Current Medications Acetaminophen (Tylenol 325mg Tab) 650 mg PO Q4 PRN PRN Reason: Pain, Mild (1-3) Aspirin (Aspirin) 325 mg PO BID [facility] Last Admin: 04/13/17 08:45 Dose: 325 mg Celecoxib (Celebrex) 200 mg PO DAILY [facility] Last Admin: 04/13/17 08:44 Dose: 200 mg Docusate Sodium (Colace) 100 mg PO BID [facility] Last Admin: 04/13/17 08:43 Dose: 100 mg Levothyroxine Sodium (Synthroid) 112 mcg PO DAILY@0630 [facility] Last Admin: 04/13/17 06:35 Dose: 112 mcg Lisinopril (Zestril) 10 mg PO DAILY [facility] Last Admin: 04/13/17 08:43 Dose: 10 mg Pantoprazole Sodium (Protonix Ec Tab) 40 mg PO DAILY [facility] Last Admin: 04/13/17 08:44 Dose: 40 mg Tramadol HCl (Ultram) 50 mg PO Q6 PRN PRN Reason: Pain, moderate (4-7) Last Admin: 04/13/17 08:46 Dose: 50 mg Physical Exam - Constitutional Appears: Well, Non-toxic, No Acute Distress - Head Exam Head Exam: ATRAUMATIC, NORMAL INSPECTION, NORMOCEPHALIC - Eye Exam Eye Exam: EOMI, Normal appearance - ENT Exam ENT Exam: Mucous Membranes Moist - Respiratory Exam Respiratory Exam: NORMAL BREATHING PATTERN - Cardiovascular Exam Cardiovascular Exam: REGULAR RHYTHM - GI/Abdominal Exam GI & Abdominal Exam: absent: Distended, Firm - Extremities Exam Extremities exam: Negative for: calf tenderness (significant ecchymosis of the left leg. there was no strike through on the dressing and it is now post op #7) - Neurological Exam Neurological exam: Alert, CN II-XII Intact, Oriented x3 - Psychiatric Exam Psychiatric exam: Normal Affect, Normal Mood - Skin Skin Exam: Warm (as above. incision after the dressing was removed was almost fully approximated) Results - Vital Signs Recent Vital Signs: Last Vital Signs Temp 97.8 F 04/13/17 08:05 Pulse 66 04/13/17 08:43 Resp 20 04/13/17 08:05 BP 113/55 L 04/13/17 08:43 Pulse Ox 100 04/13/17 08:05 - Labs Result Diagrams: 04/12/17 06:15 04/12/17 06:15 Assessment & Plan - Assessment and Plan (Free Text) Assessment: s/p left TKR doing very well PT/OT to continue to help increase functional independence Pain: controlled Vascular: no evidence of DVT GI: No evidence of constipation or diarrhea Patient continues to be an excellent TCU rehabilitation candidate and will have continued focused PT, OT and recreational therapy to help facilitate a safe and appropriate d/c plan she is set for d/c already 04/15/17. I removed the dressing cleaned with betadine and then applied steristrips
--- NOTE | 2017-04-13 19:43 | CP.PCM.PN ---
Subjective - Date & Time of Evaluation Date of Evaluation: 04/13/17 Time of Evaluation: 17:20 - Subjective Subjective: Pt seen and examined. Doing okay and no complaint Objective - Vital Signs/Intake and Output Vital Signs (last 24 hours): Temp Pulse Resp BP Pulse Ox 97.7 F 76 20 114/70 95 04/13/17 16:13 04/13/17 16:13 04/13/17 16:13 04/13/17 16:13 04/13/17 16:13 - Medications Medications: Current Medications Acetaminophen (Tylenol 325mg Tab) 650 mg PO Q4 PRN PRN Reason: Pain, Mild (1-3) Aspirin (Aspirin) 325 mg PO BID [facility] Last Admin: 04/13/17 16:58 Dose: 325 mg Celecoxib (Celebrex) 200 mg PO DAILY [facility] Last Admin: 04/13/17 08:44 Dose: 200 mg Docusate Sodium (Colace) 100 mg PO BID [facility] Last Admin: 04/13/17 16:58 Dose: 100 mg Levothyroxine Sodium (Synthroid) 112 mcg PO DAILY@0630 [facility] Last Admin: 04/13/17 06:35 Dose: 112 mcg Lisinopril (Zestril) 10 mg PO DAILY [facility] Last Admin: 04/13/17 08:43 Dose: 10 mg Pantoprazole Sodium (Protonix Ec Tab) 40 mg PO DAILY [facility] Last Admin: 04/13/17 08:44 Dose: 40 mg Tramadol HCl (Ultram) 50 mg PO Q6 PRN PRN Reason: Pain, moderate (4-7) Last Admin: 04/13/17 08:46 Dose: 50 mg - Labs Labs: 04/12/17 06:15 04/12/17 06:15 - Constitutional Appears: No Acute Distress - Head Exam Head Exam: ATRAUMATIC - Eye Exam Eye Exam: absent: Scleral icterus - Neck Exam Neck Exam: absent: Meningismus - Respiratory Exam Respiratory Exam: absent: Rhonchi, Wheezes, Respiratory Distress - Cardiovascular Exam Cardiovascular Exam: REGULAR RHYTHM, +S1, +S2 - GI/Abdominal Exam GI & Abdominal Exam: Soft. absent: Tenderness - Rectal Exam Rectal Exam: Deferred - Neurological Exam Neurological Exam: Alert, Oriented x3 - Psychiatric Exam Psychiatric exam: Normal Affect - Skin Skin Exam: Dry, Intact Assessment and Plan (1) Status post total knee replacement, left Status: Acute (2) HTN (hypertension) Status: Chronic (3) Hypothyroid Status: Chronic (4) KALNIA (obstructive sleep apnea) Status: Chronic (5) Fibromyalgia Status: Chronic (6) DVT prophylaxis Status: Acute - Assessment and Plan (Free Text) Assessment: 77 yo female with history of HTN, Hypothyroidism, Obesity, Sleep Apnea, Asthma, Fibromyalgia and Osteoarthritis had left TKR at [facility] on 04/05/2017 after failing conservative management of chronic pain on both knees. Had a successful TKR on the right followed with physical therapy 3 months ago. Patient was back for PT/OT. (1) Status post total knee replacement, left continue PT/OT continue pain management (2) HTN (hypertension) BP controlled. continue Lisinopril 10mg PO daily (3) Hypothyroid continue Levothyroxine 112mcg PO daily. (4) KALINA (obstructive sleep apnea) continue CPAP at bedtime (5) Fibromyalgia Tramadol 50mg PO q6 prn (6) DVT prophylaxis ASA 325mg PO BID (per orthopedist)
[2017-04-14] MEDS: Levothyroxine 112 MCG TAB PO SCH (06:25)
[2017-04-14] MEDS: Pantoprazole 40 mg EC Tab PO SCH (09:09)
[2017-04-15] MEDS: Levothyroxine 112 MCG TAB PO SCH (06:26)
[2017-04-15 08:00] VITALS: BP 131/68; PULSE 69; TEMP 97.2; O2SAT 100
[2017-04-15] MEDS: Pantoprazole 40 mg EC Tab PO SCH (09:17)
--- NOTE | 2017-04-15 12:00 | CP.PCM.DIS ---
Provider - Provider Date of Admission: 04/08/17 13:24 Attending physician: Berhane Pride MD Time Spent in preparation of Discharge (in minutes): 30 Hospital Course - Lab Results Lab Results: Micro Results 04/11/17 07:48 Urine,Clean Catch Urine Culture - Final No Growth (<1,000 CFU/ML) Most Recent Lab Values WBC 12.5 K/uL (4.8-10.8) H 04/12/17 06:15 RBC 4.06 Mil/uL (3.80-5.20) 04/12/17 06:15 Hgb 12.1 g/dL (12.0-16.0) 04/12/17 06:15 Hct 36.6 % (34.0-47.0) 04/12/17 06:15 MCV 90.2 fl (81.0-99.0) 04/12/17 06:15 MCH 29.8 pg (27.0-31.0) 04/12/17 06:15 MCHC 33.0 g/dL (33.0-37.0) 04/12/17 06:15 RDW 14.3 % (11.5-14.5) 04/12/17 06:15 Plt Count 250 K/uL (130-400) 04/12/17 06:15 MPV 8.2 fl (7.2-11.7) 04/12/17 06:15 Neut % (Auto) 70.6 % (50.0-75.0) 04/12/17 06:15 Lymph % (Auto) 16.8 % (20.0-40.0) L 04/12/17 06:15 Davis % (Auto) 8.4 % (0.0-10.0) 04/12/17 06:15 Eos % (Auto) 3.5 % (0.0-4.0) 04/12/17 06:15 Baso % (Auto) 0.7 % (0.0-2.0) 04/12/17 06:15 Neut # 8.8 K/uL (1.8-7.0) H 04/12/17 06:15 Lymph # 2.1 K/uL (1.0-4.3) 04/12/17 06:15 Davis # 1.0 K/uL (0.0-0.8) H 04/12/17 06:15 Eos # 0.4 K/uL (0.0-0.7) 04/12/17 06:15 Baso # 0.1 K/uL (0.0-0.2) 04/12/17 06:15 Sodium 136 mmol/l (132-148) 04/12/17 06:15 Potassium 4.3 MMOL/L (3.6-5.0) 04/12/17 06:15 Chloride 100 mmol/L (98-107) 04/12/17 06:15 Carbon Dioxide 30 mmol/L (22-30) 04/12/17 06:15 Anion Gap 10 (10-20) 04/12/17 06:15 BUN 22 mg/dl (7-17) H 04/12/17 06:15 Creatinine 0.8 mg/dL (0.7-1.2) 04/12/17 06:15 Est GFR ( Amer) > 60 04/12/17 06:15 Est GFR (Non-Af Amer) > 60 04/12/17 06:15 Random Glucose 106 mg/dL (65-105) H 04/12/17 06:15 Calcium 9.8 mg/dL (8.4-10.2) 04/12/17 06:15 Total Bilirubin 1.1 mg/dl (0.2-1.3) 04/12/17 06:15 AST 25 U/L (14-36) 04/12/17 06:15 ALT 35 U/L (9-52) 04/12/17 06:15 Alkaline Phosphatase 40 U/L (38-126) 04/12/17 06:15 Total Protein 6.9 G/DL (6.3-8.2) 04/12/17 06:15 Albumin 3.9 g/dL (3.5-5.0) 04/12/17 06:15 Globulin 3.0 gm/dL (2.2-3.9) 04/12/17 06:15 Albumin/Globulin Ratio 1.3 (1.0-2.1) 04/12/17 06:15 Urine Color Yellow (YELLOW) 04/11/17 07:19 Urine Clarity Clear (Clear) 04/11/17 07:19 Urine pH 6.0 (5.0-8.0) 04/11/17 07:19 Ur Specific [place] 1.010 (1.003-1.030) 04/11/17 07:19 Urine Protein Negative mg/dL (NEGATIVE) 04/11/17 07:19 Urine Glucose (UA) Neg mg/dL (Normal) 04/11/17 07:19 Urine Ketones Negative mg/dL (NEGATIVE) 04/11/17 07:19 Urine Blood Negative (NEGATIVE) 04/11/17 07:19 Urine Nitrate Negative (NEGATIVE) 04/11/17 07:19 Urine Bilirubin Negative (NEGATIVE) 04/11/17 07:19 Urine Urobilinogen 0.2-1.0 mg/dL (0.2-1.0) 04/11/17 07:19 Ur Leukocyte Esterase Neg Beth/uL (Negative) 04/11/17 07:19 Urine RBC (Auto) 1 /hpf (0-3) 04/11/17 07:19 Urine Microscopic WBC < 1 /hpf (0-5) 04/11/17 07:19 Ur Squamous Epith Cells < 1 /hpf (0-5) 04/11/17 07:19 Urine Bacteria Rare (<OCC) 04/11/17 07:19 - Hospital Course Hospital Course: 77 yo female with history of HTN, Hypothyroidism, Obesity, Sleep Apnea, Asthma, Fibromyalgia and Osteoarthritis had left TKR at [facility] on 04/05/2017 after failing conservative management of chronic pain on both knees. Had a successful TKR on the right followed with physical therapy 3 months ago. Patient was back for PT/OT. Patient toleratedPT well, in stable condition to be discharged (1) Status post total knee replacement, left continue PT/OT continue pain management (2) HTN (hypertension) BP controlled. continue Lisinopril 10mg PO daily (3) Hypothyroid continue Levothyroxine 112mcg PO daily. (4) KALINA (obstructive sleep apnea) continue CPAP at bedtime (5) Fibromyalgia Tramadol 50mg PO q6 prn (6) DVT prophylaxis ASA 325mg PO BID (per orthopedist) Discharge Exam - Head Exam Head Exam: ATRAUMATIC, NORMOCEPHALIC - Eye Exam Eye Exam: EOMI, Normal appearance, PERRL Pupil Exam: NORMAL ACCOMODATION - ENT Exam ENT Exam: Mucous Membranes Moist, Normal Oropharynx - Neck Exam Neck exam: Normal Inspection - Respiratory Exam Respiratory Exam: Clear to PA & Lateral, NORMAL BREATHING PATTERN - Cardiovascular Exam Cardiovascular Exam: RRR, +S1, +S2 - GI/Abdominal Exam GI & Abdominal Exam: Normal Bowel Sounds, Soft. absent: Organomegaly, Tenderness - Extremities Exam Extremities exam: normal capillary refill, pedal pulses present - Back Exam Back exam: absent: CVA tenderness (L), CVA tenderness (R) - Neurological Exam Neurological exam: Alert, Reflexes Normal - Psychiatric Exam Psychiatric exam: Normal Affect, Normal Mood - Skin Skin Exam: Dry, Warm Discharge Plan - Discharge Medications Prescriptions: Aspirin 325 mg PO BID #60 tab Celecoxib [celeBREX] 200 mg PO DAILY #30 cap Levothyroxine [Synthroid] 112 mcg PO DAILY@0630 #30 tab Lisinopril [Zestril] 10 mg PO DAILY #30 tab traMADol [Ultram] 50 mg PO Q6 PRN #20 tab PRN Reason: Pain, Moderate (4-7) - Follow Up Plan Condition: GOOD Disposition: HOME/ ROUTINE Instructions: Knee Replacement (DC)
== END 2017-04-15 12:45 | disposition home or self-care (01) | DRG 561 ==
LOC: H.TCU 13:24
PROC: F07Z9FZ Gait Training/Functional Ambulation Treatment using Assistive, Adaptive, Supportive or Protective Equipment (ICD-10-PCS; principal; 2017-04-08)
PROC: F07M6FZ Therapeutic Exercise Treatment of Musculoskeletal System - Whole Body using Assistive, Adaptive, Supportive or Protective Equipment (ICD-10-PCS; 2017-04-08)
PROC: F08Z4FZ Home Management Treatment using Assistive, Adaptive, Supportive or Protective Equipment (ICD-10-PCS; 2017-04-08)
DX: Z47.1 Aftercare following joint replacement surgery (principal); I10 Essential (primary) hypertension; E06.3 Autoimmune thyroiditis; Z96.652 Presence of left artificial knee joint; G47.33 Obstructive sleep apnea (adult) (pediatric); H40.9 Unspecified glaucoma; J45.909 Unspecified asthma, uncomplicated; K21.9 Gastro-esophageal reflux disease without esophagitis; K59.00 Constipation, unspecified; M10.9 Gout, unspecified; M79.7 Fibromyalgia; Z87.01 Personal history of pneumonia (recurrent); Z87.891 Personal history of nicotine dependence; E66.9 Obesity, unspecified; G89.29 Other chronic pain; M19.90 Unspecified osteoarthritis, unspecified site; Z68.39 Body mass index [BMI] 39.0-39.9, adult